=== PATIENT | female | born 1975 | race Caucasian/White ===

== ENCOUNTER 2019-04-30 09:20 | Emergency (ER) | payer MEDICARE, MEDICAID, SELFPAY ==
[2019-04-30 09:24] VITALS: BP 162/124; PULSE 61; RESP 16; TEMP 36.3; O2SAT 96; BMI 43.4
--- NOTE | 2019-04-30 09:29 | ED_ITS ---
Entered by Lashawn Foley, acting as scribe for Cedric Daily DO HPI - Wound/Laceration General: Chief Complaint: Wound/Laceration Stated Complaint: RIGHT FOOT PAIN Time Seen by Provider: 04/30/19 09:29 History of Present Illness: HPI narrative: 44 yo female presents with right foot laceration. [facility] ED PFSH: Social History Smoking and tobacco status: former smoker Female Reproductive History: Date of last menstrual period: 04/30/19 Course Vital Signs: Vital signs: Vital Signs Temperature 97.3 F L 04/30/19 09:24 Pulse Rate 61 04/30/19 09:24 Respiratory Rate 16 04/30/19 09:24 Blood Pressure 162/124 04/30/19 09:24 Pulse Oximetry 96 04/30/19 09:24 Coding Level of Care Code ED Revenue Cycle Manager for Jerrica Clifford
--- NOTE | 2019-04-30 09:37 | W.ED.WOUNDLC ---
HPI - Wound/Laceration General: Chief Complaint: Wound/Laceration Stated Complaint: RIGHT FOOT PAIN Time Seen by Provider: 04/30/19 09:29 Source: patient Mode of arrival: ambulatory Limitations: no limitations History of Present Illness: HPI narrative: Patient is a very nice 44-year-old female who presents to ED today at the request of her employer for evaluation following wound dehiscence to a laceration that was repaired approximately 2 weeks ago. Patient states that she had stitches placed to the plantar aspect of her left fourth and fifth toes about 2 weeks ago and stitches were removed a week ago. She reports the fifth digit healed nicely but the fourth digit has opened. She has not noticed any redness or drainage to the area. Patient reports she has a few days left worth of antibiotics. 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 Onset (ago): day(s) Extremity Location: Left: foot Place: home Patient tetanus UTD: Yes Associated symptoms: Reports no associated symptoms Review of Systems Skin/Breast: Reports: other (Wound dehiscence left fourth toe); Denies: redness or skin swelling [facility] ED PFSH: Social History Smoking and tobacco status: former smoker Female Reproductive History: Date of last menstrual period: 04/30/19 Physical Exam Const: COMMON NORMALS: no apparent distress, oriented x3, no limitations, alert and well nourished Extremity: OTHER: Patient has a very small 0.75 cm laceration to the plantar aspect at the base of her left fourth digit that has dehisced. There is no redness, swelling, drainage, or odor from the wound. Neuro: COMMON NORMALS: oriented x3 SENSORIUM/ORIENTATION: Yes alert Course Vital Signs: Vital signs: Vital Signs Temperature 97.3 F L 04/30/19 09:24 Pulse Rate 61 04/30/19 09:24 Respiratory Rate 16 04/30/19 09:24 Blood Pressure 162/124 04/30/19 09:24 Pulse Oximetry 96 04/30/19 09:24 MDM - Wound/Laceration MDM Narrative: Medical decision making narrative: Wound at this point is infection free and will have to heal by secondary intent. Wound care discussed at home. Patient is cleared to return to work. Discharge Plan Discharge Patient Disposition: Home, Self-Care Clinical Impression: Dehiscence of wound Condition: Stable Discharge Orders: Discharge Order (Routine); Ordered 04/30/19 Ordered By: Ann Zuniga Activity Restrictions/Additional Instructions: As discussed the open wound will have to heal by secondary intent/on its own. Finish antibiotic course as directed. Keep wound clean with warm soap and water and covered. You may to return to work with no restrictions. Stand Alone Forms: Work/School Release Coding Level of Care Code ED Solar Hot Water Installer for Jerrica Clifford
== END 2019-04-30 10:21 | disposition home or self-care (01) ==
LOC: ER 10:18
PROVIDERS: Emergency Provider Physician Assistant
DX: T81.30XA Disruption of wound, unspecified, initial encounter (principal); Z87.891 Personal history of nicotine dependence; Y83.8 Other surgical procedures as the cause of abnormal reaction of the patient, or of later complication, without mention of misadventure at the time of the procedure
CPT/HCPCS: 99281

== ENCOUNTER → 2019-11-30 14:02 | Outpatient (BNVA) | payer MEDICARE, MEDICAID, SELFPAY | PROVIDERS: Visit Provider Nurse Practitioner Family | DX: R82.90 Unspecified abnormal findings in urine (principal); R30.0 Dysuria; I10 Essential (primary) hypertension | CPT/HCPCS: 80053; 80061; 81000; 84439; 84443; 87077; 87086; 87186 ==

== ENCOUNTER → 2019-12-22 14:06 | Outpatient (BNVA) | payer MEDICARE, MEDICAID, SELFPAY | PROVIDERS: Visit Provider Nurse Practitioner Family | DX: R32 Unspecified urinary incontinence (principal); R82.90 Unspecified abnormal findings in urine | CPT/HCPCS: 80053; 81000; 87077; 87086; 87186 ==

== ENCOUNTER 2020-01-10 16:01 | Emergency (ER) | payer MEDICARE, MEDICAID, SELFPAY ==
[2020-01-10 16:04] VITALS: BP 152/94; PULSE 97; RESP 18; TEMP 36.4; O2SAT 97; BMI 48.5
--- NOTE | 2020-01-10 16:11 | ED_ITS ---
HPI - Dental/Oral General: Chief complaint: Dental/Oral Stated complaint: tooth ache Time Seen by Provider: 01/10/20 16:10 History of Present Illness: HPI Narrative: Patient is a 44-year-old female comes to the ED with toothache. Patient has appointment to see dentist on Saturday. Patient says she was chewing some food she bit down and felt her teeth crack and she felt intense pain. MD Complaint: tooth pain Location: Tooth # (13 and 14) Associated symptoms: Denies fever(s) or odynophagia Review of Systems Const: Denies: fever(s), chills or fatigue Eyes: Denies: change in vision or eye discomfort ENMT: Reports: dental pain; Denies: throat pain, odynophagia, nasal discharge or nasal congestion Card: Denies: chest pain, palpitations, edema, swelling of feet/ankles, dyspnea on exertion or orthopnea Resp: Denies: dyspnea, productive cough or non-productive cough GI: Denies: abdominal pain, nausea, vomiting, diarrhea, constipation or hem atochezia : Denies: flank pain, dysuria or hematuria Musc: Denies: neck pain, back pain or extremity swelling Skin/Breast: Denies: rash or new lesions Neuro: Denies: headache(s), numbness in extremities or weakness in extremities PFSH ED PFSH: Medical History Depression Hypertension Social History Smoking and tobacco status: former smoker Alcohol intake: never Female Reproductive History: Date of last menstrual period: 04/30/19 Physical Exam Const: COMMON NORMALS: patient oriented x3 and alert GENERAL APPEARANCE: cooperative; not comfortable (Patient is in tears due to dental pain.) NUTRITIONAL APPEARANCE: obese morbidly obese HENMT: COMMON NORMALS: normocephalic HEAD & SCALP: normocephalic MOUTH: Normal oral and palatal mucosa present TEETH & GINGIVA: Yes abnormal tooth and associated gingiva upper left second molar tender and enamel fractured and Yes caries (Multiple dental caries.) THROAT: posterior oropharynx normal and uvula midline Neck/C-Spine: COMMON NORMALS: supple GENERAL: Yes normal visual inspection Resp: COMMON NORMALS: normal respiratory effort, No retractions, No use of accessory muscles and clear to auscultation bilaterally AUSCULTATION: clear to auscultation bilaterally Cardio: COMMON NORMALS: regular rate, regular rhythm, S1 normal heart sound present, S2 normal heart sound present, No gallops present (Cardio), No clicks present (Cardio), No murmurs present (Cardio) and Peripheral pulses 2+ throughout RATE: regular rate RHYTHM: regular rhythm HEART SOUNDS: S1 normal heart sound present and S2 normal heart sound present PERIPHERAL PULSES: Peripheral pulses 2+ throughout GI: COMMON NORMALS: Normal to inspection, nondistended, normoactive bowel sounds present, Soft to palpation, non-tender and no masses PALPATION: Yes Soft to palpation : COMMON NORMALS: Yes no CVA tenderness BLADDER/KIDNEY EXAM: Yes no CVA tenderness Back/Pelvis: COMMON NORMALS: no CVA tenderness Extremity: COMMON NORMALS: normal to inspection Neuro: COMMON NORMALS: patient oriented x3 and moves all extremities SENSORIUM/ORIENTATION: Yes alert Skin: GENERAL SKIN EXAM: dry skin Course Vital Signs: Vital signs: Vital Signs Temperature 97.5 F L 01/10/20 16:34 Pulse Rate 97 01/10/20 16:34 Respiratory Rate 18 01/10/20 16:34 Blood Pressure 152/94 01/10/20 16:34 Pulse Oximetry 97 01/10/20 16:34 MDM - Dental/Oral MDM Narrative: Medical decision making narrative: Patient is a 44-year-old female comes to the ED with a toothache. Patient has a scheduled appointment with dentist on Saturday to manage tooth ache. Patient appears in acute pain and is emotional during history and physical exam. She has poor dentition and left upper second molar dental fracture. Patient was given prescription for hydrocodone 5/325 mg quantity 8 tabs. Discharge Plan Discharge Patient Disposition: Home Clinical Impression: Toothache Condition: Stable Prescriptions: No Action phenazopyridine [Pyridium] 200 mg tablet 200 mg PO TID PRN (Reason: pain) Qty: 6 RF: 0 ciprofloxacin HCl [Cipro] 500 mg tablet 500 mg PO BID 7 Days Qty: 14 RF: 0 hydrochlorothiazide 12.5 mg tablet 12.5 mg PO QAM Qty: 30 RF: 2 lisinopril 40 mg tablet 40 mg PO DAILY Qty: 30 RF: 2 venlafaxine [Effexor XR] 75 mg capsule,extended release 24hr 75 mg PO QAM Qty: 30 RF: 2 Discharge Orders: Discharge Order (Routine); Ordered 01/10/20 Ordered By: Chano Yañez Referrals: Yazmin Rea NP [Primary Care Provider] - Discharge Diet: Regular Discharge Activity: Increase activity as tolerated Activity Restrictions/Additional Instructions: Follow-up with dentist at your scheduled appointment on Saturday. Take medications as prescribed. Return to the ER or your medical provider if condition worsens. Please read and understand discharge instructions. If any questions, please ask. Discharge Date/Time: 01/10/20 16:35 Coding Level of Care Code ED Diving Board Assembler for Chg Fwd Exam Comprehensive
[2020-01-10] MEDS: HYDROcodone-acetaminophen 7.5-325 mg Tablet 2 TAB PO (16:28)
[2020-01-10 16:31] VITALS: BP 152/94; PULSE 97; RESP 18; TEMP 36.4; O2SAT 97
[2020-01-10 16:34] VITALS: BP 152/94; PULSE 97; RESP 18; TEMP 36.4; O2SAT 97
== END 2020-01-10 16:35 | disposition home or self-care (01) ==
PROVIDERS: Emergency Provider Physician Assistant; PCP Nurse Practitioner Family
DX: K08.89 Other specified disorders of teeth and supporting structures (principal); I10 Essential (primary) hypertension; Z87.891 Personal history of nicotine dependence
CPT/HCPCS: 12345; 99281; 99282

== ENCOUNTER 2020-01-13 08:17 | Outpatient (CLI) | payer MEDICARE, MEDICAID, SELFPAY ==
--- NOTE | 2020-01-13 08:30 | XR_ITS ---
WS: [id number] Exam: XR KUB [id number] Date/Time of Exam: 01/13/2020 8:25 AM Reason For Exam: Stones Findings: No sign of bowel obstruction or free air. Visualized organ margins are intact. No significant abnorma l calcification identified. Moderate amount of stool noted in the large bowel. Bony structures are in tact as visualized. XR/XR KUB [id number] IMPRESSION: 1. No obvious calcifications noted in the region of the renal silhouettes. No a cute finding.
== END 2020-01-13 08:18 | disposition home or self-care (01) ==
LOC: RAD 08:21
PROVIDERS: PCP Nurse Practitioner Family; Visit Provider Nurse Practitioner Family
DX: R10.9 Unspecified abdominal pain (principal); N20.0 Calculus of kidney
CPT/HCPCS: 74018; 81003

== ENCOUNTER 2020-09-09 14:14 | Emergency (ER) | payer MEDICARE, MEDICAID, SELFPAY ==
[2020-09-09] VITALS (8 sets, daily range): BP systolic 118–143; BP diastolic 70–107; PULSE 66–82; RESP 16–20; TEMP 37; O2SAT 94–100; BMI 50.8
--- NOTE | 2020-09-09 17:15 | W.ED.BACK ---
HPI - Back Pain/Injury General: Chief Complaint: Back Pain/Injury Stated Complaint: abdomen pain Source: patient Mode of arrival: ambulatory Limitations: no limitations History of Present Illness: HPI Narrative: Left flank pain that started around 1 PM today. Pain is severe and nonradiating. With associated nausea. She has a history of kidney stones. She denies any fever or hematuria. She denies dysuria. She is here to be evaluated for this MD elicited complaint: back pain Pertinent past history: kidney stones Onset (ago): hour(s) (2) Timing: constant Severity: severe Similar Symptoms Previously: No Quality: stabbing Location: left flank Radiation: none Exacerbating factors: none Relieving factors: none Associated symptoms: Reports abdominal pain and nausea; Deny arthralgias, chills, change in bowel habits, difficulty walking, dysuria, fatigue, fecal incontinence, fever(s), hematuria, myalgias, numbness, syncope, tingling/numbness/burning, urinary frequency, urinary urgency, vomiting or weakness Review of Systems General: Reports: 10 or more systems reviewed and unremarkable except in HPI and below Const: Denies: fever(s), chills or fatigue Card: Denies: syncope GI: Reports: abdominal pain and nausea; Denies: vomiting, fecal incontinence or change in bowel habits : Denies: dysuria, urinary urgency or hematuria Neuro: Denies: difficulty walking PFS ED PFSH: Medical History Depression History of kidney stones Hypertension Surgical History S/P extracorporeal shock wave therapy Family History Father Diabetes Multiple sclerosis Mother Hypertension Social History Smoking and tobacco status: never smoked Alcohol intake: never Marital status: Current occupational status: disabled History of recent travel: No Female Reproductive History: Date of last menstrual period: 08/09/20 Physical Exam Const: COMMON NORMALS: no acute distress, average body habitus, patient oriented x3, no limitations, healthy appearing, alert and well nourished HENMT: COMMON NORMALS: normocephalic, atraumatic and moist oral mucous membranes HEAD & SCALP: normocephalic and atraumatic Neck/C-Spine: COMMON NORMALS: no meningeal signs and no JVD Resp: COMMON NORMALS: normal respiratory effort, No retractions, No use of accessory muscles, clear to auscultation bilaterally and percussion normal AUSCULTATION: clear to auscultation bilaterally PERCUSSION: percussion normal Cardio: COMMON NORMALS: no JVD, regular rate, regular rhythm, S1 normal heart sound present, S2 normal heart sound present, No gallops present (Cardio), No clicks present (Cardio), No murmurs present (Cardio), No rub (Cardio) and Peripheral pulses 2+ throughout RATE: regular rate RHYTHM: regular rhythm HEART SOUNDS: S1 normal heart sound present and S2 normal heart sound present PERIPHERAL PULSES: Peripheral pulses 2+ throughout GI: COMMON NORMALS: Normal to inspection, nondistended, normoactive bowel sounds present, Soft to palpation, non-tender, No hepatosplenomegaly present, no masses and no bruits PALPATION: Yes Soft to palpation and Yes No hepatosplenomegaly present : BLADDER/KIDNEY EXAM: Yes CVA tenderness Back/Pelvis: GENERAL BACK: Yes CVA tenderness CVA tenderness: left Extremity: COMMON NORMALS: normal to inspection, full ROM, capillary refill normal, no calf tenderness and no pedal edema Neuro: COMMON NORMALS: patient oriented x3 SENSORIUM/ORIENTATION: Yes alert MENINGEAL SIGNS: Yes no meningeal signs Course Reevaluation(s): Reevaluation #1: Pain resolved. She thinks she is ready to go home. I have discussed her lab and imaging findings with her earlier. Labs unremarkable CT scan negative. I cannot identify any cause for her pain we will therefore discharge her home with no new orders she is advised to return for any concerns. She voiced understanding and is in agreement with the plan. Time: 22:04 Vital Signs: Vital signs: Vital Signs Temperature 98.6 F 09/09/20 14:59 Pulse Rate 82 09/09/20 22:34 Respiratory Rate 18 09/09/20 22:34 Blood Pressure 132/78 09/09/20 22:34 Pulse Oximetry 99 09/09/20 22:34 MDM - Back Pain/Injury MDM Narrative: Medical decision making narrative: 45-year-old female patient who presents to the emergency department with left flank pain. She has a history of kidney stone and lithotripsy and she thought this was what was causing her pain. Evaluation in the emergency department showed negative urinalyses, negative CT kidney stones, other labs unremarkable. She is therefore discharged home with no new orders. Pain was difficult to control and she required multiple doses of NSAIDs and narcotic medication before her pain was eventually controlled. Medical Records: Attestation: I reviewed the patient's medical records. Lab Data: Attestation: I reviewed the patient's lab results. Labs: Lab Results 09/09/20 09/09/20 09/09/20 Range/Units 17:05 17:50 17:50 WBC 9.1 (4.0-10.0) 10^3/ uL RBC 4.20 (4.1-5.3) 10^6/u L Hgb 13.3 (11.5-15.3) g/dL Hct 39.8 (37.0-47.0) % MCV 94.8 (81-99) fL MCH 31.7 (28.0-34.0) pg MCHC 33.4 (30.0-36.0) g/dL RDW 13.8 (12.1-15.1) % Plt Count 248 (130-400) 10^3/c mm MPV 11.3 H (7.4-10.4) fL Neut % (Auto) 62.9 % Lymph % (Auto) 29.6 % Walsh % (Auto) 6.0 % Eos % (Auto) 0.9 % Baso % (Auto) 0.3 % Neut # (Auto) 5.72 (1.8-7.7) 10^3/u L Lymph # (Auto) 2.7 (0.8-4.8) 10^3/u L Walsh # (Auto) 0.6 (0.2-0.9) 10^3/u L Eos # (Auto) 0.1 (0.0-0.8) 10^3/u L Baso # (Auto) 0.0 (0.0-0.1) 10^3/u L Nucleated RBC % (a uto) 0 % Nucleated RBCs # 0.0 /100WBC Sodium 144 (136-145) mmol/L Potassium 4.0 (3.5-5.1) mmol/L Chloride 109 H (98-107) mmol/L Carbon Dioxide 25 (22-29) mmol/L Anion Gap 14.0 (5-19) BUN 13 (6-20) mg/dL Creatinine 0.7 (0.5-0.9) mg/dL GFR Calculation 91.3 (90-130) mL/min Glucose 90 (65-115) mg/dL Calculated Osmolal ity 298 H (285-295) mOsm/k g Calcium 8.8 (8.5-10.5) mg/dL Total Bilirubin 0.4 (0.15-1.2) mg/dL AST 34 H (0-32) U/L ALT 45 H (0-33) U/L Alkaline Phosphata se 76 (35-105) IU/L C-Reactive Protein 3.5 (0.0-4.9) mg/L Total Protein 6.3 L (6.6-8.7) g/dL Albumin 3.9 (3.5-5.2) g/dL Globulin 2.4 (1.3-4.6) g/dL Urine Color Yellow (Yellow) Urine Appearance Hazy A (CLEAR) Urine pH 8 H (5-7) Ur Specific Gravit y 1.010 (1.005-1.030) Urine Protein Neg (Negative) Urine Glucose (UA) Norm (Normal) Urine Ketones 1+ H (Negative) Urine Blood Neg (Negative) Urine Nitrate Negative (Negative) Urine Bilirubin Neg (Negative) Prot Sulfosalicyli c Acd Positive (Negative) Urine Urobilinogen Norm (Negative) mg/dL Ur Leukocyte Ana Luisa ase Negative (Negative) Urine RBC None (0-2) /hpf Urine WBC None (0-5) /hpf Ur Squamous Epith Cells 15-25 H (0-5) /hpf Amorphous Sediment 1+ /hpf Urine Bacteria 1+ H (NONE) /hpf Urine Mucus 1+ /hpf Imaging Data^: CT Abd/Pel: Attestation: I personally reviewed and interpreted this imaging study as follows: Radiologist's impression: [address] [id number] Scan ReportSigned Patient: Landon Hanna #: [id number]: [id number]#:[id number]/Sex: 45 / FADM Date: 09/09/20Loc: ERRoom/Bed:Attending Dr: Ordering Provider/Ordering MD: Jamal Cao MD, ANDREW Date of Service: 09/09/20 Procedure(s): CT kidney stone 44897 Accession Number(s): [id number] Report Number: [id number] PROCEDURE INFORMATION: Exam: CT Abdomen And Pelvis Without Contrast Exam date and time: 09/09/2020 7:00 PM Age: 45 years old Clinical indication: Abdominal pain; Left; Prior surgery; Surgery date: 6+ months; Surgery type: C-sect; Patient HX: C/O sudden onset L flank pain w HX of stones; Additional info: Left flank pain TECHNIQUE: Imaging protocol: Computed tomography of the abdomen and pelvis without contrast. Radiation optimization: All CT scans at this facility use at least one of these dose optimization techniques: automated exposure control; mA and/or kV adjustment per patient size (includes targeted exams where dose is matched to clinical indication); or iterative reconstruction. COMPARISON: CR XR KUB [id number] 01/13/2020 8:28 AM RADIATION DOSE METRICS: Total DLP (mGy-cm): 2007.93 FINDINGS: Liver: Normal. No mass. Gallbladder and bile ducts: Normal. No calcified stones. No ductal dilation. Pancreas: Normal. No ductal dilation. Spleen: Normal. No splenomegaly. Adrenal glands: Normal. No mass. Kidneys and ureters: Normal. No hydronephrosis. Stomach and bowel: Unremarkable. No obstruction. No mucosal thickening. Appendix: No evidence of appendicitis. Intraperitoneal space: Unremarkable. No free air. No significant fluid collection. Vasculature: Unremarkable. No abdominal aortic aneurysm. Lymph nodes: Unremarkable. No enlarged lymph nodes. Urinary bladder: Unremarkable as visualized. Reproductive: Unremarkable as visualized. Bones/joints: Unremarkable. No acute fracture. Soft tissues: Unremarkable. CT/CT kidney stone [id number] IMPRESSION: No acute findings. Radiation Dose CTDIVOL = (mGy): DLP = 2007.93 (mGy-cm) Dictated By:Frame,KevinSigned By:Frame,KevinSigned Date/Time:09/09/20 1952DD/ 49 Discharge Plan Discharge Patient Disposition: Home Clinical Impression: Acute left flank pain Condition: Stable Prescriptions: Continued hydrocodone-acetaminophen 7.5-325 mg tablet 1 tab PO BID PRNRF: 0 Anbesol (benzocaine) 10 % gel 1 applic MUCOUS MEM BID PRNRF: 0 nitrofurantoin monohyd/m-cryst [Macrobid] 100 mg capsule 100 mg PO BID Qty: 28 RF: 0 lisinopril 40 mg tablet 40 mg PO DAILY Qty: 30 RF: 2 venlafaxine 75 mg capsule,extended release 24hr See Rx Instructions .ROUTE .COMPLEX Qty: 30 RF: 0 hydrochlorothiazide 12.5 mg tablet See Rx Instructions .ROUTE .COMPLEX Qty: 30 RF: 0 Discharge Orders: Discharge ED (Routine); Ordered 09/09/20 Ordered By: Jamal Cao Referrals: Yazmin Rea NP [Primary Care Provider] - 1-3 days Discharge Diet: Usual diet Patient Instructions: Abdominal Pain (ED) Activity Restrictions/Additional Instructions: Return for any new or worsening symptoms. Follow-up with your primary care provider within 3 days. Take Tylenol or ibuprofen as needed for pain. Continue home medications. Coding Level of Care Code ED Supervisor Film Processing for Jerrica Fwd Exam Comprehensive
[2020-09-09] MEDS: ketorolac 30 mg/mL INJ IVP (17:54)
[2020-09-09] MEDS: ondansetron 2 mg/ML SDV 2 mL 4 MG IVP (17:54)
[2020-09-09 18:15] LABS: Basophils % 0.3 %; Eosinophils # 0.1 10^3/uL (0.0-0.8); Eosinophils % 0.9 %; Hematocrit 39.8 % (37.0-47.0); Hemoglobin 13.3 g/dL (11.5-15.3); Lymphocytes # 2.7 10^3/uL (0.8-4.8); Lymphocytes % 29.6 %; Mean Corpuscular HGB Conc 33.4 g/dL (30.0-36.0); Mean Corpuscular Hemoglobin 31.7 pg (28.0-34.0); Mean Corpuscular Volume 94.8 fL (81-99); Mean Platelet Volume 11.3 fL (7.4-10.4); Monocytes # 0.6 10^3/uL (0.2-0.9); Neutrophils # 5.72 10^3/uL (1.8-7.7); Neutrophils % 62.9 %; Nucleated Red Blood Cells % 0 %; Platelet Count 248 10^3/cmm (130-400); Red Cell Distribution Width 13.8 % (12.1-15.1); White Blood Count 9.1 10^3/uL (4.0-10.0)
[2020-09-09 18:29] LABS: Alanine Aminotransferase 45 U/L (0-33); Albumin Level 3.9 g/dL (3.5-5.2); Alkaline Phosphatase 76 IU/L (35-105); Aspartate Amino Transferase 34 U/L (0-32); Blood Urea Nitrogen 13 mg/dL (6-20); C Reactive Protein 3.5 mg/L (0.0-4.9); Calcium 8.8 mg/dL (8.5-10.5); Carbon Dioxide 25 mmol/L (22-29); Chloride 109 mmol/L (98-107); Globulin 2.4 g/dL (1.3-4.6); Glomerular Filtration Rate 91.3 mL/min (90-130); Glucose 90 mg/dL (65-115); Osmolality Calculated 298 mOsm/kg (285-295); Sodium 144 mmol/L (136-145); Total Bilirubin 0.4 mg/dL (0.15-1.2); Total Protein 6.3 g/dL (6.6-8.7)
[2020-09-09] MEDS: morphine 4 mg/mL SDV 1 mL IVP ×2 (18:35→20:29)
[2020-09-09 18:36] LABS: Add Urine Microscopic? YES; Bilirubin Urine Neg (Negative); Blood Urine Neg (Negative); Glucose Urine UA Norm (Normal); Ketones Urine 1+ (Negative); Leukocyte Esterase Urine Negative (Negative); Nitrate Urine Negative (Negative); Protein Urine Neg (Negative); Sulfosalicylic Acid Urine Positive (Negative); Urine Appearance Hazy (CLEAR); Urine Color Yellow (Yellow); Urobilinogen Urine Norm (Negative); pH Urine 8 (5-7)
[2020-09-09 18:37] LABS: Add Urine Culture? No; Amorphous Sediment Urine 1+ /hpf; Bacteria Urine 1+ /hpf; Mucus Urine 1+ /hpf; Squamous Epithelial Cell Urine 15-25 /hpf (0-5)
--- NOTE | 2020-09-09 19:00 | CTR_ITS ---
PROCEDURE INFORMATION: Exam: CT Abdomen And Pelvis Without Contrast Exam date and time: 09/09/2020 7:00 PM Age: 45 years old Clinical indication: Abdominal pain; Left; Prior surgery; Surgery date: 6+ months; Surgery type: C-sect; Patient HX: C/O sudden onset L flank pain w HX of stones; Additional info: Left flank pain TECHNIQUE: Imaging protocol: Computed tomography of the abdomen and pelvis without contrast. Radiation optimization: All CT scans at this facility use at least one of these dose optimization techniques: automated exposure control; mA and/or kV adjustment per patient size (includes targeted exams where dose is matched to clinical indication); or iterative reconstruction. COMPARISON: CR XR KUB [id number] 01/13/2020 8:28 AM RADIATION DOSE METRICS: Total DLP (mGy-cm): FINDINGS: Liver: Normal. No mass. Gallbladder and bile ducts: Normal. No calcified stones. No ductal dilation. Pancreas: Normal. No ductal dilation. Spleen: Normal. No splenomegaly. Adrenal glands: Normal. No mass. Kidneys and ureters: Normal. No hydronephrosis. Stomach and bowel: Unremarkable. No obstruction. No mucosal thickening. Appendix: No evidence of appendicitis. Intraperitoneal space: Unremarkable. No free air. No significant fluid collection. Vasculature: Unremarkable. No abdominal aortic aneurysm. Lymph nodes: Unremarkable. No enlarged lymph nodes. Urinary bladder: Unremarkable as visualized. Reproductive: Unremarkable as visualized. Bones/joints: Unremarkable. No acute fracture. Soft tissues: Unremarkable. CT/CT kidney stone [id number] IMPRESSION: No acute findings. Radiation Dose CTDIVOL = (mGy): DLP = (mGy-cm)
--- NOTE | 2020-09-09 19:01 | PC.NURSE ---
hand off report to XU Madden
[2020-09-09] MEDS: orphenadrine 30 mg/mL Inj 2 mL 60 MG IVP (20:29)
[2020-09-09] MEDS: HYDROmorphone 1 mg/mL INJ 1 mL IVP (21:10)
== END 2020-09-09 22:35 | disposition home or self-care (01) ==
PROVIDERS: Nurse Practitioner Family; Emergency Provider Family Medicine; PCP Nurse Practitioner Family
DX: R10.9 Unspecified abdominal pain (principal); I10 Essential (primary) hypertension
CPT/HCPCS: 74176; 80053; 81001; 85025; 86140; 96374; 96375; 96376; 99284; J1170; J1885; J2270; J2360; J2405

== ENCOUNTER 2021-01-24 10:06 | Outpatient (CLI) | payer MEDICARE, MEDICAID, SELFPAY ==
--- NOTE | 2021-01-24 10:17 | XR_ITS ---
WS: [id number] LEFT SHOULDER: 2 VIEW(S) TECHNIQUE: Internal and external rotation. HISTORY: CHRONIC L SHOULDER PAIN COMPARISON: None available. No fracture or dislocation or soft tissue abnormality. Glenohumeral and AC joints are unremarkable. XR/XR shoulder LT min 2V* [id number] IMPRESSION: Normal LEFT shoulder.
== END 2021-01-24 10:07 | disposition home or self-care (01) ==
PROVIDERS: PCP Nurse Practitioner Family; Visit Provider Family Medicine
DX: M25.512 Pain in left shoulder (principal); G89.29 Other chronic pain
CPT/HCPCS: 73030

== ENCOUNTER 2021-06-24 14:47 | Emergency (ER) | payer MEDICARE, MEDICAID, SELFPAY ==
[2021-06-24 15:05] VITALS: BP 153/86; PULSE 69; RESP 18; TEMP 36.8; O2SAT 98; BMI 44.9
--- NOTE | 2021-06-24 15:13 | ED_ITS ---
HPI - Back Pain/Injury General: Chief Complaint: Back Pain/Injury Stated Complaint: blood in urine Time Seen by Provider: 06/24/21 14:49 Source: patient Mode of arrival: ambulatory Limitations: no limitations History of Present Illness: Referral to female presents emergency room complaining of low back pain worse on the right side. She reports she was seen couple weeks ago by PCP had hematuria told she had kidney stone however no imaging was done. She is having difficulty with urination feels like she cannot completely empty her bladder denies any fever sweats or chills states pain in her low back is worsening she refers to the right SI joint. She has not noticed any further hematuria. MD elicited complaint: back pain Pertinent past history: kidney stones Timing: intermittent Severity: moderate Similar Symptoms Previously: Yes Quality: sharp Radiation: none Exacerbating factors: movement and other (palpation) Relieving factors: none Associated symptoms: Reports hematuria; Deny abdominal pain, arthralgias, chills, change in bowel habits, difficulty walking, dysuria, fatigue, fecal incontinence, fever(s), myalgias, nausea, numbness, syncope, tingling/numbness/burning, urinary frequency, urinary urgency, vomiting or weakness Review of Systems Const: Denies: fever(s), chills, body aches or fatigue ENMT: Denies: throat pain, ear or mastoid pain, nasal discharge or nasal congestion Card: Denies: syncope Resp: Denies: dyspnea, productive cough or non-productive cough GI: Denies: abdominal pain, nausea, vomiting, fecal incontinence or change in bowel habits : Reports: hematuria; Denies: dysuria or urinary urgency Musc: Reports: back pain (Her first SI joint right side) Skin/Breast: Denies: rash or pruritus Neuro: Denies: difficulty walking PFS ED PFSH: Medical History Depression History of kidney stones Hypertension Surgical History S/P extracorporeal shock wave therapy Family History Father Diabetes Multiple sclerosis Mother Hypertension Social History Smoking and tobacco status: never smoked Alcohol intake: never Marital status: Current occupational status: disabled History of recent travel: No Female Reproductive History: Date of last menstrual period: 08/09/20 Physical Exam Const: GENERAL APPEARANCE: cooperative and comfortable ORIENTATION/CONSCIOUSNESS: Yes awake, Yes oriented to person, Yes oriented to p lace and Yes oriented to time HENMT: COMMON NORMALS: normocephalic, atraumatic and hearing grossly normal bilaterally HEAD & SCALP: normocephalic and atraumatic Neck/C-Spine: COMMON NORMALS: no JVD Resp: COMMON NORMALS: normal respiratory effort, No retractions, No use of accessory muscles and clear to auscultation bilaterally AUSCULTATION: clear to auscultation bilaterally Cardio: COMMON NORMALS: no JVD, regular rate, regular rhythm and No murmurs present (Cardio) RATE: regular rate RHYTHM: regular rhythm GI: COMMON NORMALS: Soft to palpation and No hepatosplenomegaly present AUSCULTATION: Yes normoactive bowel sounds PALPATION: Yes Soft to palpation, No Tenderness to palpation present (GI), No Guarding due to palpation present (GI) and Yes No hepatosplenomegaly present : COMMON NORMALS: Yes no CVA tenderness BLADDER/KIDNEY EXAM: Yes no CVA tenderness Back/Pelvis: COMMON NORMALS: no CVA tenderness SACROILIAC JOINTS: Yes SI joint(s) abnormal (Right) SI joint details: tender to palpation Extremity: COMMON NORMALS: normal to inspection, capillary refill normal, no clubbing, cyanosis or edema, no calf tenderness and no pedal edema Neuro: SENSORIUM/ORIENTATION: Yes oriented to person, Yes oriented to place and Yes oriented to time Skin: COMMON NORMALS: no rashes or lesions noted GENERAL SKIN EXAM: no rashes or lesions noted Course Vital Signs: Vital signs: Vital Signs Temperature 98.3 F 06/24/21 15:05 Pulse Rate 77 06/24/21 18:24 Respiratory Rate 18 06/24/21 18:24 Blood Pressure 154/82 06/24/21 18:24 Pulse Oximetry 96 06/24/21 18:24 MDM - Back Pain/Injury Medical Decision Making Labs and imaging reviewed there is no hematuria. White count is normal and CT there is no evidence of nephrolithiasis no dilation of the ureters suggestive of recent passage of stone. Discussed results with the patient we will discharge her home treat for musculoskeletal SI pain and follow-up with her primary care doctor if not improving Medical Records I reviewed the patient's medical records. Labs I reviewed the patient's lab results. : 06/24/21 15:48 06/24/21 15:48 Radiology Impressions Abdomen/Pelvis CT 06/24/21 16:59 IMPRESSION: 1. No obstructing calculi, suspicious renal mass or other acute urinary tract findings. Follow-up cystoscopy may be helpful if hematuria persists. 2. Left ovarian/adnexal cystic structure measuring 2.9 cm. This is likely benign. However follow-up ultrasound/duplex imaging correlation may be considered if clinically indicated. 3. Left lateral abdominal wall lipoma, unchanged. 4. Early colonic diverticular formation without diverticulitis. Laboratory Results WBC 8.1 10^3/uL (4.0-10.0) 06/24/21 15:48 RBC 4.48 10^6/uL (4.1-5.3) 06/24/21 15:48 Hgb 14.1 g/dL (11.5-15.3) 06/24/21 15:48 Hct 42.2 % (37.0-47.0) 06/24/21 15:48 MCV 94.2 fl (81-99) 06/24/21 15:48 MCH 31.5 pg (28.0-34.0) 06/24/21 15:48 MCHC 33.4 g/dL (30.0-36.0) 06/24/21 15:48 RDW 13.2 % (12.1-15.1) 06/24/21 15:48 Plt Count 215 10^3/cmm (130-400) 06/24/21 15:48 MPV 11.5 fL (7.4-10.4) H 06/24/21 15:48 Neut % (Auto) 55.0 % 06/24/21 15:48 Lymph % (Auto) 34.5 % 06/24/21 15:48 [place] % (Auto) 7.9 % 06/24/21 15:48 Eos % (Auto) 2.0 % 06/24/21 15:48 Baso % (Auto) 0.4 % 06/24/21 15:48 Neut # (Auto) 4.48 10^3/uL (1.8-7.7) 06/24/21 15:48 Lymph # (Auto) 2.8 10^3/uL (0.8-4.8) 06/24/21 15:48 [place] # (Auto) 0.6 10^3/uL (0.2-0.9) 06/24/21 15:48 Eos # (Auto) 0.2 10^3/uL (0.0-0.8) 06/24/21 15:48 Baso # (Auto) 0.0 10^3/uL (0.0-0.1) 06/24/21 15:48 Nucleated RBC % (auto) 0 % 06/24/21 15:48 Nucleated RBCs # 0.0 /100WBC 06/24/21 15:48 Sodium 134 mmol/L (136-145) L 06/24/21 15:48 Potassium 4.4 mmol/L (3.5-5.1) 06/24/21 15:48 Chloride 105 mmol/L (98-107) 06/24/21 15:48 Carbon Dioxide 20 mmol/L (22-29) L 06/24/21 15:48 Anion Gap 13.4 (5-19) 06/24/21 15:48 BUN 12 mg/dL (6-20) 06/24/21 15:48 Creatinine 0.8 mg/dL (0.5-0.9) 06/24/21 15:48 GFR Calculation 77.9 mL/min (90-130) L 06/24/21 15:48 Glucose 89 mg/dL (65-115) 06/24/21 15:48 Calculated Osmolality 277 mOsm/kg (285-295) L 06/24/21 15:48 Calcium 9.0 mg/dL (8.5-10.5) 06/24/21 15:48 Urine Color Yellow (Yellow) 06/24/21 15:40 Urine Appearance Sl hazy (CLEAR) 06/24/21 15:40 Urine pH 6.5 (5-7) 06/24/21 15:40 Ur Specific [place] 1.015 (1.005-1.030) 06/24/21 15:40 Urine Protein Neg (Negative) 06/24/21 15:40 Urine Glucose (UA) Norm (Normal) 06/24/21 15:40 Urine Ketones Negative (Negative) 06/24/21 15:40 Urine Blood Neg (Negative) 06/24/21 15:40 Urine Nitrate Negative (Negative) 06/24/21 15:40 Urine Bilirubin Neg (Negative) 06/24/21 15:40 Urine Urobilinogen Norm mg/dL (Negative) 06/24/21 15:40 Ur Leukocyte Esterase Negative (Negative) 06/24/21 15:40 Urine RBC None /hpf (0-2) 06/24/21 15:40 Urine WBC 0-4 /hpf (0-5) H 06/24/21 15:40 Ur Squamous Epith Cells 5-10 /hpf (0-5) H 06/24/21 15:40 Amorphous Sediment Not Reportable 06/24/21 15:40 Urine Bacteria 1+ /hpf (NONE) H 06/24/21 15:40 Discharge Plan Discharge Patient Disposition: Home Clinical Impression: Sacroiliitis Condition: Stable Prescriptions: New hydrocodone-acetaminophen 5-325 mg tablet 1 tab PO Q6H PRN (Reason: pain) Qty: 10 0RF diclofenac sodium 75 mg tablet,delayed release (DR/EC) 75 mg PO Q12H PRN (Reason: pain) Qty: 20 0RF prednisone 20 mg tablet 20 mg PO TID Qty: 15 0RF Rx Instructions: P.o. 3 times daily x3 days, 1 p.o. twice daily x2 days, 1 p.o. daily x2 days No Action hydrocodone-acetaminophen 7.5-325 mg tablet 1 tab PO BID PRN0RF Anbesol (benzocaine) 10 % gel 1 applic MUCOUS MEM BID PRN0RF Rx Instructions: apply to area with swab nitrofurantoin monohyd/m-cryst [Macrobid] 100 mg capsule 100 mg PO BID Qty: 28 0RF Rx Instructions: must administer with a meal/food lisinopril 40 mg tablet 40 mg PO DAILY Qty: 30 2RF venlafaxine 75 mg capsule,extended release 24hr See Rx Instructions .ROUTE .COMPLEX Qty: 30 0RF Dose Instruction: TAKE ONE CAPSULE BY MOUTH ONCE DAILY IN THE MORNING Rx Instructions: TAKE ONE CAPSULE BY MOUTH ONCE DAILY IN THE MORNING hydrochlorothiazide 12.5 mg tablet See Rx Instructions .ROUTE .COMPLEX Qty: 30 0RF Dose Instruction: TAKE ONE TABLET BY MOUTH ONCE DAILY IN THE MORNING Rx Instructions: TAKE ONE TABLET BY MOUTH ONCE DAILY IN THE MORNING Discharge Orders: Discharge ED (Routine); Ordered 06/24/21 Ordered By: Cedric Daily Discharge Diet: Usual diet Discharge Activity: Resume usual activity Patient Instructions: Opioid Safety Activity Restrictions/Additional Instructions: Follow-up with your primary care doctor if not improving the next 4 to 5 days Coding Level of Care Code ED Head Of Marketing for Jerrica Fwd Exam Comprehensive
[2021-06-24 15:55] LABS: Basophils % 0.4 %; Eosinophils # 0.2 10^3/uL (0.0-0.8); Hematocrit 42.2 % (37.0-47.0); Hemoglobin 14.1 g/dL (11.5-15.3); Lymphocytes # 2.8 10^3/uL (0.8-4.8); Lymphocytes % 34.5 %; Mean Corpuscular HGB Conc 33.4 g/dL (30.0-36.0); Mean Corpuscular Hemoglobin 31.5 pg (28.0-34.0); Mean Corpuscular Volume 94.2 fl (81-99); Mean Platelet Volume 11.5 fL (7.4-10.4); Monocytes # 0.6 10^3/uL (0.2-0.9); Monocytes % 7.9 %; Neutrophils # 4.48 10^3/uL (1.8-7.7); Nucleated Red Blood Cells % 0 %; Platelet Count 215 10^3/cmm (130-400); Red Blood Count 4.48 10^6/uL (4.1-5.3); Red Cell Distribution Width 13.2 % (12.1-15.1); White Blood Count 8.1 10^3/uL (4.0-10.0)
[2021-06-24 15:58] VITALS: RESP 22
[2021-06-24] MEDS: morphine 4 mg/mL SDV 1 mL IVP (15:58)
[2021-06-24] MEDS: ondansetron 2 mg/ML SDV 2 mL 4 MG IVP (15:58)
[2021-06-24] MEDS: sodium chloride 0.9% 1,000 ML 999 ML IV (16:00)
[2021-06-24 16:10] VITALS: BP 169/111; PULSE 80; RESP 18; O2SAT 94
[2021-06-24 16:24] LABS: Blood Urea Nitrogen 12 mg/dL (6-20); Carbon Dioxide 20 mmol/L (22-29); Chloride 105 mmol/L (98-107); Glomerular Filtration Rate 77.9 mL/min (90-130); Glucose 89 mg/dL (65-115); Osmolality Calculated 277 mOsm/kg (285-295); Sodium 134 mmol/L (136-145)
[2021-06-24 16:30] VITALS: BP 169/111; PULSE 80; RESP 18; O2SAT 94
--- NOTE | 2021-06-24 16:30 | PC.NURSE ---
Notified Dr. Daily of post void 98ml.
--- NOTE | 2021-06-24 16:31 | PC.NURSE ---
Patient states she does not want anymore pain medication. she states it made her sick but she wanted to try, after morphine, pain level the same, no change in level, declined wanting other pain options at this time.
[2021-06-24 16:35] LABS: Anion Gap 13.4 (5-19); Potassium 4.4 mmol/L (3.5-5.1)
[2021-06-24 16:49] LABS: Specific Gravity, Urine 1.015 (1.005-1.030); Urine Appearance SL Hazy (CLEAR); Urine Color Yellow (Yellow); pH Urine 6.5 (5-7)
[2021-06-24 16:50] LABS: Bilirubin Urine Neg (Negative); Blood Urine Neg (Negative); Glucose Urine UA Norm (Normal); Ketones Urine Negative (Negative); Leukocyte Esterase Urine Negative (Negative); Nitrate Urine Negative (Negative); Protein Urine Neg (Negative); Urobilinogen Urine Norm (Negative)
[2021-06-24 16:51] LABS: Add Urine Culture? No; Add Urine Microscopic? YES; Bacteria Urine 1+ /hpf; WBC Urine 0-4 /hpf (0-5)
--- NOTE | 2021-06-24 16:59 | CTR_ITS ---
PROCEDURE INFORMATION: Exam: CT Abdomen And Pelvis With Contrast Exam date and time: 06/24/2021 5:25 PM Age: 46 years old Clinical indication: Abdominal pain; Right; Patient HX: C/O R flank pain x a couple weeks w episode of hematuria and HX of stones; Additional info: Abd pain TECHNIQUE: Imaging protocol: Computed tomography of the abdomen and pelvis with contrast. Radiation optimization: All CT scans at this facility use at least one of these dose optimization techniques: automated exposure control; mA and/or kV adjustment per patient size (includes targeted exams where dose is matched to clinical indication); or iterative reconstruction. Contrast material: OMNI 300; Contrast volume: 95 ml; Contrast route: INTRAVENOUS (IV); COMPARISON: CT kidney stone [id number] 09/09/2020 7:30 PM RADIATION DOSE METRICS: Total DLP (mGy-cm): 1751.33 FINDINGS: Liver: Somewhat elongated right hepatic lobe with no significant overall hepatomegaly or cirrhosis. No discrete mass. Gallbladder and bile ducts: Absent gallbladder. No abnormal bile duct dilatation. Pancreas: Normal. No ductal dilation. Spleen: Normal. No splenomegaly. Adrenal glands: Normal. No mass. Kidneys and ureters: No obstructing calculus. No hydronephrosis. Stomach and bowel: Early colonic diverticular formation without acute diverticulitis. Small to moderate stool burden. Appendix: No evidence of appendicitis. Intraperitoneal space: Unremarkable. No free air. No significant fluid collection. Arteries: Unremarkable. No abdominal aortic aneurysm. Lymph nodes: No enlarged lymph nodes. Urinary bladder: Unremarkable as visualized. Reproductive: There is a left ovarian/adnexal cystic structure, measuring 2.9 by 2.3 by 2.7 cm which may be ovarian or paraovarian cyst. No large solid elements or acute regional inflammatory response. No obvious regional ovarian stromal edema. Otherwise unremarkable uterine and no right adnexal region mass. Bones/joints: No acute fracture. Soft tissues: There is a lipoma within the left oblique abdominal musculature, measuring about 4.5 by 2.1 cm, without significant change. CT/CT abdomen pelvis w con* [id number] IMPRESSION: 1. No obstructing calculi, suspicious renal mass or other acute urinary tract findings. Follow-up cystoscopy may be helpful if hematuria persists. 2. Left ovarian/adnexal cystic structure measuring 2.9 cm. This is likely benign. However follow-up ultrasound/duplex imaging correlation may be considered if clinically indicated. 3. Left lateral abdominal wall lipoma, unchanged. 4. Early colonic diverticular formation without diverticulitis.
[2021-06-24] MEDS: iohexol 300 mg/mL 100 mL Btl IV (17:24)
[2021-06-24] MEDS: ketorolac 30 mg/mL INJ IVP (17:52)
[2021-06-24] MEDS: dexamethasone 10 mg/mL INJ IVP (17:53)
--- NOTE | 2021-06-24 18:12 | PC.NURSE ---
30mg of Ketorolac was not given. Med was scanned and saved but patient refused. Tried to edit medication but it would not allow it.
[2021-06-24 18:24] VITALS: BP 154/82; PULSE 77; RESP 18; O2SAT 96
== END 2021-06-24 18:26 | disposition home or self-care (01) ==
PROVIDERS: Emergency Provider Family Medicine
DX: M46.1 Sacroiliitis, not elsewhere classified (principal); Z79.891 Long term (current) use of opiate analgesic; Z87.442 Personal history of urinary calculi; I10 Essential (primary) hypertension
CPT/HCPCS: 51798; 74177; 80048; 81001; 85025; 96361; 96374; 96375; 99284; J1100; J1885; J2270; J2405; J7030; Q9967

== ENCOUNTER 2023-04-09 15:17 | Emergency (ER) | payer MEDICARE, MEDICAID, SELFPAY ==
[2023-04-09 15:25] VITALS: BP 172/104; PULSE 69; RESP 14; TEMP 36.7; O2SAT 97; BMI 46.3
--- NOTE | 2023-04-09 16:31 | ECG_ITS ---
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 Measurements Intervals [place] Rate: 67 P: 25 RI: 138 QRS: -28 QRSD: 93 T: 15 QT: 394 QTc: 416 Interpretive Statements SINUS RHYTHM BORDERLINE LEFT AXIS DEVIATION [QRS AXIS < -20] LOW QRS VOLTAGE IN PRECORDIAL LEADS [QRS DEFLECTION < 1.0 mV IN CHEST LEADS] VOLTAGE CRITERIA FOR LVH [MEETS CRITERIA IN ONE OF: R(aVL), S(V1), R(V5), R(V5/V6)+S(V1)] NONSPECIFIC T-WAVE ABNORMALITY No previous ECG available for comparison Electronically Signed On 04-09-2023 19:54:16 CASINO [employer]OST by Jacob Cason M.D. [email or web address]/store/[id number]
--- NOTE | 2023-04-09 16:31 | XRR_ITS ---
PROCEDURE INFORMATION: Exam: XR Chest Exam date and time: 04/09/2023 4:36 PM Age: 48 years old Clinical indication: Pain; Chest pressure; Additional info: Cp TECHNIQUE: Imaging protocol: Radiologic exam of the chest. Views: 1 view. COMPARISON: CT abdomen pelvis w con* [id number] 06/24/2021 5:25 PM FINDINGS: Lungs: No consolidation. Pleural spaces: No pleural effusion. No pneumothorax. Heart/Mediastinum: No cardiomegaly. Bones/joints: No acute findings. XR/XR chest 1V portable [id number] IMPRESSION: No acute findings.
--- NOTE | 2023-04-09 16:43 | USR_ITS ---
PROCEDURE INFORMATION: Exam: US Duplex Left Lower Extremity Veins, Limited Exam date and time: 04/09/2023 5:02 PM Age: 48 years old Clinical indication: Pain; Leg, lower; Left TECHNIQUE: Imaging protocol: Real-time duplex ultrasound of the left extremity with 2-D alicea scale, color Doppler flow and spectral waveform analysis including responses to compression and other maneuvers (when performed) with image documentation. Limited exam focused on the left lower extremity veins. COMPARISON: CT abdomen pelvis w con* [id number] 06/24/2021 5:25 PM FINDINGS: Veins: Patent without thrombus. Normal Doppler waveforms. Normal compressibility and/or augmentation response. US/CV venous duplex [facility] [id number] IMPRESSION: No evidence of deep vein thrombosis.
--- NOTE | 2023-04-09 16:59 | ED_ITS ---
HPI - Chest Pain 2 General: Chief Complaint: Chest Pain Stated Complaint: chest pain, red streak in left leg Time Seen by Provider: 04/09/23 16:28 Source: patient Mode of arrival: ambulatory Limitations: no limitations History of Present Illness: 48-year-old female who states she has keller d some streaking up her left leg with pain she also has had chest pain over the last 3 days she has had history of clot in the past and is concerned about a clot since mild dyspnea denies any fever she rates her chest pain a 3 out of 10. Associated symptoms: Deny abdominal pain, dyspnea, fever(s), nausea or vomiting Review of Systems 2 Const: Denies: fever(s) or chills ENMT: Denies: throat pain or dental pain Card: Reports: chest pain Resp: Denies: dyspnea GI: Denies: abdominal pain, nausea, vomiting or diarrhea Musc: Reports: extremity pain; Denies: neck pain or back pain Skin/Breast: Denies: rash Neuro: Denies: headache(s) PFSH ED 2 PFSH: Medical History History of kidney stones Hypertension Depression Surgical History S/P extracorporeal shock wave therapy Family History Father Diabetes Multiple sclerosis Mother Hypertension Social History Smoking and tobacco/nicotine status: never used tobacco/nicotine Alcohol intake: never Substance/Drug Use: never Marital status: Current occupational status: disabled Physical Exam 2 Const: COMMON NORMALS: no acute distress, patient oriented x3 and healthy appearing HENMT: COMMON NORMALS: normocephalic and atraumatic HEAD & SCALP: n ormocephalic and atraumatic Eye: COMMON NORMALS: Equal, round and reactive pupils present and EOMs intact bilaterally PUPIL: Yes Equal, round and reactive pupils present Neck/C-Spine: COMMON NORMALS: full ROM Chest: COMMONS NORMALS: normal inspection of the chest Resp: COMMON NORMALS: normal respiratory effort Cardio: COMMON NORMALS: regular rate, regular rhythm and No murmurs present (Cardio) RATE: regular rate RHYTHM: regular rhythm Extremity: COMMON NORMALS: full ROM NARRATIVE EXTREMITY EXAM: Tenderness noted to left calf Neuro: COMMON NORMALS: patient oriented x3, moves all extremities and no focal motor deficits Psych: COMMON NORMALS: mental status grossly normal, Normal thought process present and cooperative THOUGHT PROCESS: Normal thought process present Skin: COMMON NORMALS: no rashes or lesions noted and no wounds GENERAL SKIN EXAM: no rashes or lesions noted Course 2 Vital Signs: Vital signs: Vital Signs Temperature 98.0 F 04/09/23 15:25 Pulse Rate 65 04/09/23 18:12 Respiratory Rate 20 H 04/09/23 18:12 Blood Pressure 205/138 04/09/23 18:12 Pulse Oximetry 96 04/09/23 18:12 Oxygen Delivery Me thod Room Air 04/09/23 15:25 MDM - Chest Pain Medical Decision Making Patient presents here with left leg pain along with chest pain ultrasound showed no signs of DVT CTA is normal her troponin here is negative no signs of acute coronary syndrome she feels improved here she is stable for discharge she is follow-up with PCP and return if worsening. Medical Records I reviewed the patient's medical records. Lab Data I reviewed the patient's lab results. 04/09/23 17:28 04/09/23 17:28 Radiology Impressions Chest X-Ray 04/09/23 16:31 IMPRESSION: No acute findings. Venous Duplex 04/09/23 16:43 IMPRESSION: No evidence of deep vein thrombosis. Chest CTA 04/09/23 18:05 IMPRESSION: 1. No pulmonary embolus. 2. No focal consolidation. Laboratory Results WBC 7.79 10^3/uL (3.29-11.43) 04/09/23 17: RBC 4.39 10^6/uL (3.85-5.65) 04/09/23 17:28 Hgb 14.00 g/dL (11.27-16.99) 04/09/23 17: Hct 40.7 % (36-47) 04/09/23 17:28 MCV 92.7 fl (85-98) 04/09/23 17:28 MCH 31.9 pg (27-33) 04/09/23 17: MCHC 34.4 g/dL (30-55) 04/09/23 17:28 RDW 13.4 % (12.1-15.1) 04/09/23 17:28 Plt Count 203 10^3/cmm (157-399) 04/09/23 17: MPV 10.8 fL (7.4-10.4) H 04/09/23 17:28 Neut % (Auto) 66.2 % 04/09/23 17: Lymph % (Auto) 25.0 % 04/09/23 17: [place] % (Auto) 6.0 % 04/09/23 17: Eos % (Auto) 2.1 % 04/09/23 17:28 Baso % (Auto) 0.4 % 04/09/23 17: Neut # (Auto) 5.16 10^3/uL (1.8-7.7) 04/09/23: Lymph # (Auto) 2.0 10^3/uL (0.8-4.8) 04/09/23 17: [place] # (Auto) 0.5 10^3/uL (0.2-0.9) 04/09/23 17: Eos # (Auto) 0.2 10^3/uL (0.0-0.8) 04/09/23 17: Baso # (Auto) 0.0 10^3/uL (0.0-0.1) 04/09/23: Nucleated RBC % (auto) 0 % 04/09/23: Nucleated RBCs # 0.0 /100WBC 04/09/23: D-Dimer 0.64 ug/mLFEU (0-0.59) H 04/09/23 17:28 Sodium 142 mmol/L (136-145) 04/09/23 17: Potassium 4.2 mmol/L (3.5-5.1) 04/09/23 17: Chloride 107 mmol/L (98-107) 04/09/23 17: Carbon Dioxide 25 mmol/L (22-29) 04/09/23 17: Anion Gap 14.2 (5-19) 04/09/23 17:28 BUN 13 mg/dL (6-20) 04/09/23 17:28 Creatinine 0.7 mg/dL (0.5-0.9) 04/09/23 17: GFR Calculation 90.1 mL/min (90-130) 04/09/23 17:28 Glucose 120 mg/dL (65-115) H 04/09/23 17:28 Calculated Osmolality 295 mOsm/kg (285-295) 04/09/23 17:28 Calcium 8.8 mg/dL (8.5-10.5) 04/09/23 17:28 Total Bilirubin 0.2 mg/dL (0.15-1.2) 04/09/23 17:28 AST 20 U/L (0-32) 04/09/23 17:28 ALT 29 U/L (0-33) 04/09/23 17:28 Alkaline Phosphatase 90 U/L (35-105) 04/09/23 17:28 Troponin T Baseline < 6 ng/L (0-10) 04/09/23 17:28 Total Protein 6.1 g/dL (6.6-8.7) L 04/09/23 17:28 Albumin 3.9 g/dL (3.5-5.2) 04/09/23 17:28 Globulin 2.2 g/dL (1.3-4.6) 04/09/23 17:28 All radiology interpretation(s) finalized by discharge EKG Data EKG 1: I personally reviewed and interpreted this EKG as follows: EKG interpretation date: 04/09/23 EKG interpretation time: 15:23 Interpretation: nsr hr [address] or t wave abnormalities qrs 93 qtc 409 Discharge Plan Discharge Patient Disposition: Home Clinical Impression: Chest pain, Left leg pain Condition: Stable Prescriptions: No Action Ventolin HFA 90 mcg/actuation HFA aerosol inhaler 1 puff INHALATION TID PRN (Reason: Shortness Of Breath Or Wheezing) Discharge Orders: Discharge ED (Routine); Ordered 04/09/23 Ordered By: Kj Panchal Discharge Diet: Advance as tolerated Discharge Activity: Resume usual activity Patient Instructions: Chest Pain (ED), Leg Pain (ED) Coding Level of Care Code ED Drivers License Examiner for Jerrica Clifford
[2023-04-09 17:29] VITALS: BP 176/115; PULSE 65; RESP 25; O2SAT 95
[2023-04-09 17:55] LABS: Basophils % 0.4 %; Eosinophils # 0.2 10^3/uL (0.0-0.8); Eosinophils % 2.1 %; Hematocrit 40.7 % (36-47); Mean Corpuscular HGB Conc 34.4 g/dL (30-55); Mean Corpuscular Hemoglobin 31.9 pg (27-33); Mean Corpuscular Volume 92.7 fl (85-98); Mean Platelet Volume 10.8 fL (7.4-10.4); Monocytes # 0.5 10^3/uL (0.2-0.9); Neutrophils # 5.16 10^3/uL (1.8-7.7); Neutrophils % 66.2 %; Nucleated Red Blood Cells % 0 %; Platelet Count 203 10^3/cmm (157-399); Red Blood Count 4.39 10^6/uL (3.85-5.65); Red Cell Distribution Width 13.4 % (12.1-15.1); White Blood Count 7.79 10^3/uL (3.29-11.43)
[2023-04-09 18:02] LABS: D Dimer 0.64 ug/mLFEU (0-0.59)
[2023-04-09 18:05] LABS: Troponin(5th) Baseline < 6 ng/L (0-10)
--- NOTE | 2023-04-09 18:05 | CTR_ITS ---
PROCEDURE INFORMATION: Exam: CTA Chest With Contrast Exam date and time: 04/09/2023 6:57 PM Age: 48 years old Clinical indication: Pain; Chest pressure; Additional info: Cp TECHNIQUE: Imaging protocol: Computed tomographic angiography of the chest with contrast. Exam focused on the arteries. 3D rendering (Not supervised by radiologist): MIP and/or 3D reconstructed images were created by the technologist. Radiation optimization: All CT scans at this facility use at least one of these dose optimization techniques: automated exposure control; mA and/or kV adjustment per patient size (includes targeted exams where dose is matched to clinical indication); or iterative reconstruction. Contrast material: OMNI 350; Contrast volume: 100 ml; Contrast route: INTRAVENOUS (IV); COMPARISON: CR (CHEST, ) 04/09/2023 4:36 PM RADIATION DOSE METRICS: Total DLP (mGy-cm): 540 FINDINGS: Pulmonary arteries: Normal. No pulmonary emboli. Aorta: Unremarkable. No aortic aneurysm. No aortic dissection. Lungs: Unremarkable. No consolidation. No masses. Pleural spaces: Unremarkable. No pneumothorax. No pleural effusion. Heart: Unremarkable. No cardiomegaly. No pericardial effusion. Lymph nodes: Unremarkable. No enlarged lymph nodes. Bones/joints: Unremarkable. No acute fracture. Soft tissues: Unremarkable. CT/CT angio chest PE protcl [id number] IMPRESSION: 1. No pulmonary embolus. 2. No focal consolidation.
[2023-04-09 18:12] VITALS: BP 205/138; PULSE 65; RESP 20; O2SAT 96
[2023-04-09 18:15] LABS: Alanine Aminotransferase 29 U/L (0-33); Albumin Level 3.9 g/dL (3.5-5.2); Alkaline Phosphatase 90 U/L (35-105); Anion Gap 14.2 (5-19); Aspartate Amino Transferase 20 U/L (0-32); Blood Urea Nitrogen 13 mg/dL (6-20); Calcium 8.8 mg/dL (8.5-10.5); Carbon Dioxide 25 mmol/L (22-29); Chloride 107 mmol/L (98-107); Globulin 2.2 g/dL (1.3-4.6); Glomerular Filtration Rate 90.1 mL/min (90-130); Glucose 120 mg/dL (65-115); Osmolality Calculated 295 mOsm/kg (285-295); Potassium 4.2 mmol/L (3.5-5.1); Sodium 142 mmol/L (136-145); Total Bilirubin 0.2 mg/dL (0.15-1.2); Total Protein 6.1 g/dL (6.6-8.7)
--- NOTE | 2023-04-09 18:31 | ECG_ITS ---
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 Measurements Intervals [place] Rate: 64 P: 53 ND: 158 QRS: -26 QRSD: 88 T: 0 QT: 410 QTc: 426 Interpretive Statements SINUS RHYTHM BORDERLINE LEFT AXIS DEVIATION [QRS AXIS < -20] MODERATE VOLTAGE CRITERIA FOR LVH, CONSIDER NORMAL VARIANT [MEETS CRITERIA IN ONE OF: R(aVL), S(V1), R(V5), R(V5/V6)+S(V1)] NONSPECIFIC T-WAVE ABNORMALITY Compared to ECG 04/09/2023 15:23:09 No significant changes Electronically Signed On 04-09-2023 20:18:52 [employer] by Jacob Cason M.D. [email or web address] [id number]
[2023-04-09] MEDS: iohexol 350 mg/mL 500 mL Btl (per mL) IV (19:08)
[2023-04-09 19:51] VITALS: BP 176/115; PULSE 66; O2SAT 96
== END 2023-04-09 19:52 | disposition home or self-care (01) ==
PROVIDERS: Emergency Provider Emergency Medicine
DX: R07.9 Chest pain, unspecified (principal); M79.605 Pain in left leg; I10 Essential (primary) hypertension
CPT/HCPCS: 36415; 71045; 71275; 80053; 84484; 85025; 85378; 93005; 93971; 99285; Q9967

== ENCOUNTER → 2023-07-01 15:30 | Outpatient (BNVA) | payer MEDICARE, MEDICAID, SELFPAY | PROVIDERS: PCP Nurse Practitioner Family; Visit Provider Nurse Practitioner Family | DX: I10 Essential (primary) hypertension (principal); R63.5 Abnormal weight gain; F32.9 Major depressive disorder, single episode, unspecified | CPT/HCPCS: 80053; 80061; 84443; 85025 ==

== ENCOUNTER 2023-07-16 17:54 | Emergency (ER) | payer MEDICARE, MEDICAID, SELFPAY ==
[2023-07-16 17:57] VITALS: BP 158/100; PULSE 87; RESP 16; TEMP 36.7; O2SAT 97
--- NOTE | 2023-07-16 18:08 | USR_ITS ---
PROCEDURE INFORMATION: Exam: US Nonobstetric Pelvis; Complete Exam date and time: 07/16/2023 6:34 PM Age: 48 years old Clinical indication: Menstruation abnormalities; Excessive menstruation; Other: Non-stop, heavy vaginal bleeding since onset of last menses 06/28/2023 LABS AND CLINICAL REPORTS: Last menstrual period start date: 06/28/2023 TECHNIQUE: Imaging protocol: Transabdominal pelvic nonobstetric ultrasound. Complete exam. Real time ultrasound with image documentation. COMPARISON: CT abdomen pelvis w con* [id number] 06/24/2021 5:25 PM FINDINGS: Uterus: Uterus measures 12.2 cm x 6.23 cm x 4.51 cm. Fibroid uterus. There is irregularity of the anterior aspect of the myometrium compatible with a scar. Endometrium measures approximately 7 mm. Right ovary/adnexa: Not well visualized. Left ovary/adnexa: Left ovary measures 3.6 cm x 3.2 cm x 2 cm. Flow is visualized. No evidence of adnexal mass. Intraperitoneal space: No significant free fluid. US/US pelv w/transvag [id number] IMPRESSION: 1. Limited exam. Fibroid uterus. No evidence of endometrial thickening. 2. Right ovary/adnexa nonvisualized. Limited evaluation of the left ovary. Flow is visualized.
--- NOTE | 2023-07-16 18:20 | W.ED.FEMALGU ---
HPI - Female Genitourinary General: Chief complaint: Urogenital-Female Stated complaint: grayson, vaginal bleeding for 18 days Time Seen by Provider: 07/16/23 18:08 [facility] ED PFSH: Medical History History of kidney stones Hypertension Depression Surgical History S/P extracorporeal shock wave therapy Family History Father Diabetes Multiple sclerosis Mother Hypertension Social History Smoking and tobacco/nicotine status: never used tobacco/nicotine Alcohol intake: never Substance/Drug Use: never Marital status: Current occupational status: disabled Course Vital Signs: Vital signs: Vital Signs Temperature 98.1 F 07/16/23 17:57 Pulse Rate 87 07/16/23 17:57 Respiratory Rate 16 07/16/23 17:57 Blood Pressure 158/100 07/16/23 17:57 Pulse Oximetry 97 07/16/23 17:57 Discharge Plan Discharge Condition: Stable Prescriptions: No Action hydrochlorothiazide 25 mg tablet 25 mg PO QAM Qty: 30 0RF Ventolin HFA 90 mcg/actuation HFA aerosol inhaler 1 puff INHALATION TID PRN (Reason: Shortness Of Breath Or Wheezing) Referrals: Yazmin Rea NP [Primary Care Provider] - Coding Level of Care Code ED Soft Sugar Operator Head for Jerrica Clifford
--- NOTE | 2023-07-16 18:30 | ED_ITS ---
HPI - Female Genitourinary 2 General: Chief complaint: Urogenital-Female Stated complaint: dr galicia, vaginal bleeding for 18 days Time Seen by Provider: 07/16/23 18:08 Source: patient Mode of arrival: ambulatory Limitations: no limitations History of Present Illness: 48-year-old female who states she has keller d heavy vaginal bleeding for the last 3 weeks. States she has been passing clots. States she has had some lightheadedness some lower abdominal cramping. She has never had any issues with abnormal periods or heavy bleeding in the past. She does not have a spinner frame her PCP had sent her here. Associated symptoms: Deny abdominal pain, headache(s) or nausea Review of Systems 2 Const: Denies: fever(s), chills, body aches or change in appetite Eyes: Denies: eye discomfort ENMT: Denies: throat pain or dental pain Card: Denies: chest pain Resp: Denies: dyspnea GI: Denies: abdominal pain, nausea, vomiting or diarrhea : Reports: vaginal bleeding Musc: Denies: neck pain or back pain Skin/Breast: Denies: rash Neuro: Denies: headache(s) PFSH ED 2 PFSH: Medical History History of kidney stones Hypertension Depression Surgical History S/P extracorporeal shock wave therapy Family History Father Diabetes Multiple sclerosis Mother Hypertension Social History Smoking and tobacco/nicotine status: never used tobacco/nicotine Alcohol intake: never Substance/Drug Use: never Marital status: Current occupational status: disabled Physical Exam 2 Const: COMMON NORMALS: no acute distress, patient oriented x3 and healthy appearing HENMT: COMMON NORMALS: normocephalic and atraumatic HEAD & SCALP: n ormocephalic and atraumatic Neck/C-Spine: COMMON NORMALS: full ROM and supple Chest: COMMONS NORMALS: normal inspection of the chest Resp: COMMON NORMALS: normal respiratory effort Cardio: COMMON NORMALS: regular rate, regular rhythm and No murmurs present (Cardio) RATE: regular rate RHYTHM: regular rhythm GI: COMMON NORMALS: Normal to inspection, nondistended, normoactive bowel sounds present, Soft to palpation, non-tender and no masses PALPATION: Yes Soft to palpation Extremity: COMMON NORMALS: normal to inspection and full ROM Neuro: COMMON NORMALS: patient oriented x3, moves all extremities and no focal motor deficits Psych: COMMON NORMALS: mental status grossly normal, Normal thought process present and cooperative THOUGHT PROCESS: Normal thought process present Skin: COMMON NORMALS: no rashes or lesions noted and no wounds GENERAL SKIN EXAM: no rashes or lesions noted Course 2 Vital Signs: Vital signs: Vital Signs Temperature 98.1 F 07/16/23 17:57 Pulse Rate 87 07/16/23 17:57 Respiratory Rate 16 07/16/23 17:57 Blood Pressure 158/100 07/16/23 17:57 Pulse Oximetry 97 07/16/23 17:57 MDM - Female Medical Decision Making Patient presents here with increased vaginal bleeding her hemoglobin here is normal ultrasound did show some uterine fibroids she is well-appearing here vitals are normal she is stable for discharge we will follow-up with DIRECT MARKETING SPECIALIST she is return if worsening. Medical Records I reviewed the patient's medical records. Lab Data I reviewed the patient's lab results. 07/16/23 18:25 07/16/23 18:25 Radiology Impressions Pelvic/Transvag US 07/16/23 18:08 IMPRESSION: 1. Limited exam. Fibroid uterus. No evidence of endometrial thickening. 2. Right ovary/adnexa nonvisualized. Limited evaluation of the left ovary. Flow is visualized. Laboratory Results WBC 9.88 10^3/uL (3.29-11.43) 07/16/23 18:25 RBC 4.21 10^6/uL (3.85-5.65) 07/16/23 18:25 Hgb 13.30 g/dL (11.27-16.99) 07/16/23 18: Hct 38.0 % (36-47) 07/16/23 18:25 MCV 90.3 fl (85-98) 07/16/23 18:25 MCH 31.6 pg (27-33) 07/16/23 18: MCHC 35.0 g/dL (30-55) 07/16/23 18:25 RDW 13.2 % (12.1-15.1) 07/16/23 18:25 Plt Count 223 10^3/cmm (157-399) 07/16/23 18: MPV 10.9 fL (7.4-10.4) H 07/16/23 18:25 Neut % (Auto) 64.0 % 07/16/23 18:25 Lymph % (Auto) 30.2 % 07/16/23 18:25 [place] % (Auto) 3.7 % 07/16/23 18:25 Eos % (Auto) 1.6 % 07/16/23 18:25 Baso % (Auto) 0.2 % 07/16/23 18: Neut # (Auto) 6.32 10^3/uL (1.8-7.7) 07/16/23 18: Lymph # (Auto) 3.0 10^3/uL (0.8-4.8) 07/16/23 18:25 [place] # (Auto) 0.4 10^3/uL (0.2-0.9) 07/16/23 18:25 Eos # (Auto) 0.2 10^3/uL (0.0-0.8) 07/16/23 18: Baso # (Auto) 0.0 10^3/uL (0.0-0.1) 07/16/23 18: Nucleated RBC % (auto) 0 % 07/16/23 18: Nucleated RBCs # 0.0 /100WBC 07/16/23 18:25 Sodium 142 mmol/L (136-145) 07/16/23 18:25 Potassium 3.5 mmol/L (3.5-5.1) 07/16/23 18:25 Chloride 102 mmol/L (98-107) 07/16/23 18:25 Carbon Dioxide 27 mmol/L (22-29) 07/16/23 18:25 Anion Gap 16.5 (5-19) 07/16/23 18:25 BUN 13 mg/dL (6-20) 07/16/23 18:25 Creatinine 0.9 mg/dL (0.5-0.9) 07/16/23 18:25 GFR Calculation 67.4 mL/min (90-130) L 07/16/23 18:25 Glucose 174 mg/dL (65-115) H 07/16/23 18:25 Calculated Osmolality 298 mOsm/kg (285-295) H 07/16/23 18:25 Calcium 8.6 mg/dL (8.5-10.5) 07/16/23 18:25 Total Bilirubin 0.2 mg/dL (0.15-1.2) 07/16/23 18:25 AST 29 U/L (0-32) 07/16/23 18:25 ALT 34 U/L (0-33) H 07/16/23 18:25 Alkaline Phosphatase 94 U/L (35-105) 07/16/23 18:25 Total Protein 6.3 g/dL (6.6-8.7) L 07/16/23 18:25 Albumin 4.0 g/dL (3.5-5.2) 07/16/23 18:25 Globulin 2.3 g/dL (1.3-4.6) 07/16/23 18:25 HCG, Qual Negative (Negative) 07/16/23 18:25 Blood Type O Positive 07/16/23 18:25 Rho(D) Type Rh positive 07/16/23 18:25 All radiology interpretation(s) finalized by discharge Discharge Plan Discharge Patient Disposition: Home Clinical Impression: Abnormal vaginal bleeding Condition: Stable Prescriptions: No Action hydrochlorothiazide 25 mg tablet 25 mg PO QAM Qty: 30 0RF Ventolin HFA 90 mcg/actuation HFA aerosol inhaler 1 puff INHALATION TID PRN (Reason: Shortness Of Breath Or Wheezing) Discharge Orders: Discharge ED (Routine); Ordered 07/16/23 Ordered By: Kj Panchal Referrals: Emre Bruno MD [Physician] - 1-3 days Yazmin Rea NP [Primary Care Provider] - Discharge Diet: Advance as tolerated Discharge Activity: Resume usual activity Patient Instructions: Abnormal (Dysfunctional) Uterine Bleeding (ED) Coding Level of Care Code ED Grey Stock Recorder for Chg Venessa
[2023-07-16] MEDS: sodium chloride 0.9% 1,000 ML 999 ML IV (18:36)
[2023-07-16 18:48] LABS: Basophils % 0.2 %; Eosinophils # 0.2 10^3/uL (0.0-0.8); Eosinophils % 1.6 %; Lymphocytes % 30.2 %; Mean Corpuscular Hemoglobin 31.6 pg (27-33); Mean Corpuscular Volume 90.3 fl (85-98); Mean Platelet Volume 10.9 fL (7.4-10.4); Monocytes # 0.4 10^3/uL (0.2-0.9); Monocytes % 3.7 %; Neutrophils # 6.32 10^3/uL (1.8-7.7); Nucleated Red Blood Cells % 0 %; Platelet Count 223 10^3/cmm (157-399); Red Blood Count 4.21 10^6/uL (3.85-5.65); Red Cell Distribution Width 13.2 % (12.1-15.1); White Blood Count 9.88 10^3/uL (3.29-11.43)
[2023-07-16 18:59] LABS: Alanine Aminotransferase 34 U/L (0-33); Alkaline Phosphatase 94 U/L (35-105); Anion Gap 16.5 (5-19); Aspartate Amino Transferase 29 U/L (0-32); Blood Urea Nitrogen 13 mg/dL (6-20); Calcium 8.6 mg/dL (8.5-10.5); Carbon Dioxide 27 mmol/L (22-29); Chloride 102 mmol/L (98-107); Creatinine Clr Calc Pharmacy 90.8448; Globulin 2.3 g/dL (1.3-4.6); Glomerular Filtration Rate 67.4 mL/min (90-130); Glucose 174 mg/dL (65-115); Osmolality Calculated 298 mOsm/kg (285-295); Potassium 3.5 mmol/L (3.5-5.1); Sodium 142 mmol/L (136-145); Total Bilirubin 0.2 mg/dL (0.15-1.2); Total Protein 6.3 g/dL (6.6-8.7)
[2023-07-16 19:44] LABS: HCG, Serum Qual Negative (Negative)
[2023-07-16 20:50] VITALS: BP 170/114; PULSE 73; RESP 16; O2SAT 95
[2023-07-16 21:15] VITALS: PULSE 73; RESP 16; O2SAT 95
--- NOTE | 2023-07-17 07:39 | DCPLANNER ---
referral sent to [facility]
== END 2023-07-16 20:56 | disposition home or self-care (01) ==
PROVIDERS: Emergency Provider Emergency Medicine; PCP Nurse Practitioner Family
DX: N93.9 Abnormal uterine and vaginal bleeding, unspecified (principal); I10 Essential (primary) hypertension
CPT/HCPCS: 36415; 76830; 76856; 80053; 84703; 85025; 86900; 99284; J7030

== ENCOUNTER → 2023-07-29 14:26 | Outpatient (BNVA) | payer MEDICARE, MEDICAID, SELFPAY | PROVIDERS: PCP Nurse Practitioner Family; Referring Provider Emergency Medicine; Visit Provider Obstetrics & Gynecology | DX: Z01.419 Encounter for gynecological examination (general) (routine) without abnormal findings (principal) | CPT/HCPCS: 87624 ==

== ENCOUNTER 2023-08-14 08:45 | Emergency (ER) | payer MEDICARE, MEDICAID, SELFPAY ==
[2023-08-14 10:04] VITALS: BP 186/109; PULSE 72; RESP 18; TEMP 36.8; O2SAT 98; BMI 49.1
--- NOTE | 2023-08-14 10:53 | PC.PHAR ---
PT STATES IS HARD HEADED AND WOULD RATHER NOT BE HERE BUT TRIED TO WORK TODAY AND CAN'T GET ANY PAIN RELIEF FROM OTC MEDICATIONS THIS MORNING.
--- NOTE | 2023-08-14 11:04 | CT_ITS ---
WS: [id number] CT ABDOMEN PELVIS TECHNIQUE: Contrast-enhanced CT of the abdomen and pelvis with coronal and sagittal reformatted image s. CLINICAL INFORMATION: abd pain COMPARISON: None. DLP: 1273.[address] scans at [facility] use at least one of these dose optimization techniques: automated e xposure control; mA and/or kV adjustment per patient size (includes targeted exams where dose is matc hed to clinical indication); or iterative reconstruction. FINDINGS: Diffuse fatty infiltration of the liver. Mild hepatomegaly. Normal spleen. Small esophageal hiatal hernia. Air-fluid level in the distended stomach. Normal pancreas. Celiac and SMA are patent. Lung bases are well aerated. Adrenal glands are normal. Normal renal parenchymal enhancement. Tiny L EFT adrenal adenoma. No obstructing renal or ureteral calculi. Normal sigmoid colon. No evidence of s mall or large bowel obstruction. LEFT ovarian cyst measuring 2.1 x 1.7 cm. Fibroid uterus. Thickening at the internal cervical os with cystic and low-attenuation change. This c ould be further evaluated with pelvic ultrasound. CT/CT abdomen pelvis w con* [id number] IMPRESSION: 1. Mild diffuse fatty infiltration of the liver with mild hepatomegaly. 2. Small esophageal hiatal hernia. 3. No hydronephrosis in either kidney. 4. Normal sigmoid colon. 5. Fibroid uterus. Soft tissue thickening and cystic change at the internal ce rvical os may be due to nabothian cysts but indeterminate. Uterus could be furt her evaluated with ultrasound. 6. LEFT ovarian cyst measuring 2.1 x 1.7 cm.
--- NOTE | 2023-08-14 11:17 | ED_ITS ---
HPI - Abdominal Pain 2 General: Chief Complaint: Abdominal Pain Stated Complaint: pelvic pain, back pain Time Seen by Provider: 08/14/23 10:38 Source: patient Mode of arrival: ambulatory History of Present Illness: 48-year-old female presents emergency ro om with complaints of pelvic pain and cramping this been going on intermittently for the last 3 months she is seeing gynecology/surgery on some control to try to cut back on the dysfunctional uterine bleeding he says is gotten worse last few days to the point where she has difficult time doing any of her regular ADLs. She also has nausea and headache. She denies any fever sweats chills no dysuria urgency or frequency she has had kidney stones in the past but states this feels distinctively different from the pain she is experienced with previous kidney stone. She has had evaluations for gynecology and was told she had multiple uterine fibroids MD elicited complaint: abdominal pain Pertinent past history: none Onset (ago): month(s) Pain Consistency: constant Location: Pelvis Severity: severe Quality: sharp Exacerbating factors: nothing Relieving factors: nothing Associated Symptoms: Denies anorexia, belching, bloating, change in bowel habits, change in stool character, chills, coffee ground emesis, constipation, GI cramping, diarrhea, dyspepsia, dysuria, excessive flatus, fever(s), heartburn, hematochezia, hematuria, hematemesis, fecal incontinence, loose stools, melena, nausea, poor appetite, syncope and vomiting Review of Systems 2 Const: Denies: fever(s) or chills Card: Denies: chest pain or syncope Resp: Denies: dyspnea GI: Denies: abdominal pain, nausea, vomiting, hematemesis, coffee ground emesis, heartburn, diarrhea, constipation, bloating, GI cramping, belching, excessive flatus, fecal incontinence, change in bowel habits, change in stool character, hematochezia or melena : Reports: vaginal bleeding; Denies: flank pain, dysuria, urinary frequency, urinary urgency or hematuria Musc: Denies: neck pain or back pain Skin/Breast: Denies: rash PFSH ED 2 PFSH: Medical History History of kidney stones Hypertension Depression Surgical History S/P extracorporeal shock wave therapy Family History Father Diabetes Multiple sclerosis Hypertension Mother Hypertension Heart disease Stroke Thyroid disease Grandmother Hypertension Ovarian cancer Sister Thyroid disease Denies family history of Colon cancer Prostate cancer Hypercholesteremia Breast cancer Uterine cancer Social History Marital status: Physical Exam 2 Const: GENERAL APPEARANCE: cooperative and comfortable O RIENTATION/CONSCIOUSNESS: Yes awake, Yes oriented to person, Yes oriented to place and Yes oriented to time HENMT: COMMON NORMALS: normocephalic, atraumatic and hearing grossly normal bilaterally HEAD & SCALP: normocephalic and atraumatic Resp: COMMON NORMALS: normal respiratory effort, No retractions, No use of accessory muscles and clear to auscultation bilaterally AUSCULTATION: clear to auscultation bilaterally Cardio: COMMON NORMALS: regular rate, regular rhythm and No murmurs present (Cardio) RATE: regular rate RHYTHM: regular rhythm GI: COMMON NORMALS: No hepatosplenomegaly present AUSCULTATION: Yes normoactive bowel sounds PALPATION: Yes Tenderness to palpation present (GI) (Suprapubic), No Guarding due to palpation present (GI) and Yes No hepatosplenomegaly present Extremity: COMMON NORMALS: normal to inspection, capillary refill normal, no clubbing, cyanosis or edema, no calf tenderness and no pedal edema Neuro: SENSORIUM/ORIENTATION: Yes oriented to person, Yes oriented to place and Yes oriented to time Skin: COMMON NORMALS: no rashes or lesions noted GENERAL SKIN EXAM: no rashes or lesions noted Course 2 Vital Signs: Vital signs: Vital Signs Temperature 98.2 F 08/14/23 15:30 Pulse Rate 70 08/14/23 15:30 Respiratory Rate 16 08/14/23 15:30 Blood Pressure 174/115 08/14/23 15:30 Pulse Oximetry 99 08/14/23 15:30 Oxygen Delivery Me thod Room Air 08/14/23 13:08 MDM - Abdominal Pain Medical Decision Making CT does not show anything acute hemoglobin stable I contacted Dr. Bruno he recommends prior melena 2 tablets twice daily today then 2 tablets daily for 5 days then 1 tablet daily until the packet is completed. Hydrocodone given for pain. Follow-up with Dr. Bruno in the office as soon as she is able for further treatment options. Medical Records I reviewed the patient's medical records. Lab Data I reviewed the patient's lab results. 08/14/23 11:33 08/14/23 11:33 Labs/Radiology: Radiology Impressions Abdomen/Pelvis CT 08/14/23 11:04 IMPRESSION: 1. Mild diffuse fatty infiltration of the liver with mild hepatomegaly. 2. Small esophageal hiatal hernia. 3. No hydronephrosis in either kidney. 4. Normal sigmoid colon. 5. Fibroid uterus. Soft tissue thickening and cystic change at the internal cervical os may be due to nabothian cysts but indeterminate. Uterus could be further evaluated with ultrasound. 6. LEFT ovarian cyst measuring 2.1 x 1.7 cm. Laboratory Results WBC 8.87 10^3/uL (3.29-11.43) 08/14/23 11:33 RBC 4.02 10^6/uL (3.85-5.65) 08/14/23 11:33 Hgb 12.80 g/dL (11.27-16.99) 08/14/23 11:33 Hct 37.9 % (36-47) 08/14/23 11:33 MCV 94.3 fl (85-98) 08/14/23 11:33 MCH 31.8 pg (27-33) 08/14/23 11:33 MCHC 33.8 g/dL (30-55) 08/14/23 11:33 RDW 14.0 % (12.1-15.1) 08/14/23 11:33 Plt Count 260 10^3/cmm (157-399) 08/14/23 11:33 MPV 10.8 fL (7.4-10.4) H 08/14/23 11:33 Neut % (Auto) 70.6 % 08/14/23 11:33 Lymph % (Auto) 21.5 % 08/14/23 11:33 [place] % (Auto) 6.3 % 08/14/23 11:33 Eos % (Auto) 0.8 % 08/14/23 11:33 Baso % (Auto) 0.3 % 08/14/23 11:33 Neut # (Auto) 6.26 10^3/uL (1.8-7.7) 08/14/23 11:33 Lymph # (Auto) 1.9 10^3/uL (0.8-4.8) 08/14/23 11:33 [place] # (Auto) 0.6 10^3/uL (0.2-0.9) 08/14/23 11:33 Eos # (Auto) 0.1 10^3/uL (0.0-0.8) 08/14/23 11:33 Baso # (Auto) 0.0 10^3/uL (0.0-0.1) 08/14/23 11:33 Nucleated RBC % (auto) 0 % 08/14/23 11:33 Nucleated RBCs # 0.0 /100WBC 08/14/23 11:33 Sodium 142 mmol/L (136-145) 08/14/23 11:33 Potassium 4.1 mmol/L (3.5-5.1) 08/14/23 11:33 Chloride 110 mmol/L (98-107) H 08/14/23 11:33 Carbon Dioxide 22 mmol/L (22-29) 08/14/23 11:33 Anion Gap 14.1 (5-19) 08/14/23 11:33 BUN 12 mg/dL (6-20) 08/14/23 11:33 Creatinine 0.8 mg/dL (0.5-0.9) 08/14/23 11:33 GFR Calculation 77.2 mL/min (90-130) L 08/14/23 11:33 Glucose 109 mg/dL (65-115) 08/14/23 11:33 Calculated Osmolality 294 mOsm/kg (285-295) 08/14/23 11:33 Calcium 8.9 mg/dL (8.5-10.5) 08/14/23 11:33 Total Bilirubin 0.3 mg/dL (0.15-1.2) 08/14/23 11:33 AST 14 U/L (0-32) 08/14/23 11:33 ALT 14 U/L (0-33) 08/14/23 11:33 Alkaline Phosphatase 65 U/L (35-105) 08/14/23 11:33 Total Protein 6.5 g/dL (6.6-8.7) L 08/14/23 11:33 Albumin 3.5 g/dL (3.5-5.2) 08/14/23 11:33 Globulin 3.0 g/dL (1.3-4.6) 08/14/23 11:33 Lipase 111 U/L (13-60) H 08/14/23 11:33 HCG, Qual Negative (Negative) 08/14/23 11:33 Urine Color Yellow (Yellow) 08/14/23 12:33 Urine Appearance Clear (CLEAR) 08/14/23 12:33 Urine pH 5 (5-7) 08/14/23 12:33 Ur Specific [place] 1.015 (1.005-1.030) 08/14/23 12:33 Urine Protein Neg (Negative) 08/14/23 12:33 Urine Glucose (UA) Norm (Normal) 08/14/23 12:33 Urine Ketones Negative (Negative) 08/14/23 12:33 Urine Blood Neg (Negative) 08/14/23 12:33 Urine Nitrate Negative (Negative) 08/14/23 12:33 Urine Bilirubin Neg (Negative) 08/14/23 12:33 Urine Urobilinogen Norm mg/dL (Negative) 08/14/23 12:33 Ur Leukocyte Esterase Negative (Negative) 08/14/23 12:33 Urine RBC Too numerous to cnt /hpf (0-2) H 08/14/23 11:01 Urine WBC 15-25 /hpf (0-5) H 08/14/23 11:01 Ur Squamous Epith Cells 5-10 /hpf (0-5) H 08/14/23 11:01 Amorphous Sediment Not Reportable 08/14/23 11:01 Urine Bacteria 1+ /hpf (NONE) H 08/14/23 11:01 Urine Mucus Trace /hpf 08/14/23 11:01 All radiology interpretation(s) finalized by discharge Discharge Plan Discharge Patient Disposition: Home Clinical Impression: Abnormal uterine bleeding, Uterine fibroid Condition: Stable Prescriptions: New hydrocodone-acetaminophen 5-325 mg tablet 1 tab PO Q6H PRN (Reason: pain) Qty: 15 0RF No Action norethindrone-ethin estradiol 1-35 mg-mcg tablet 1 tab PO DAILY Qty: 84 0RF albuterol sulfate [Ventolin HFA] 90 mcg/actuation HFA aerosol inhaler 1 puff INHALATION TID PRN (Reason: Shortness Of Breath Or Wheezing) acetaminophen 500 mg Tablet 500 mg PO Q6H PRN (Reason: Pain) ibuprofen 200 mg Tablet 200 mg PO Q6H PRN (Reason: Pain) hydrochlorothiazide 25 mg tablet 25 mg PO QAM Discharge Orders: Discharge ED (Routine); Ordered 08/14/23 Ordered By: Cedric Daily Referrals: Yazmin Rea, ENVIRONMENTAL QUALITY ANALYST [Primary Care Provider] - Discharge Diet: Usual diet Discharge Activity: Resume usual activity Patient Instructions: Opioid Safety, Pain Management Activity Restrictions/Additional Instructions: Thank you for choosing [facility] for your healthcare needs today. Please realize this is an emergency room and that we are providing you with a medical screening exam and this may not be complete and all inclusive of all the testing and or work up that you may need to determine your ailment or severity of your illness. It is very important that you follow up as instructed or that you return to the Emergency Department should you have concerns or if your condition changes or worsens in any way. CT of your abdomen did not show any significant abnormalities. Hemoglobin is stable. We contacted Dr. Bruno your character actor he recommends a taper of oral contraceptive pills. We also gave you prescription for pain medications. Stand Alone Forms: Work/School Release Coding Level of Care Code ED Agency Trainer for Jerrica Clifford
[2023-08-14] MEDS: ondansetron 2 mg/ML SDV 2 mL 4 MG IVP (11:25)
[2023-08-14 11:26] VITALS: RESP 16
[2023-08-14] MEDS: morphine 4 mg/mL SDV 1 mL IVP (11:26)
[2023-08-14 11:45] LABS: Basophils % 0.3 %; Eosinophils # 0.1 10^3/uL (0.0-0.8); Eosinophils % 0.8 %; Hematocrit 37.9 % (36-47); Lymphocytes # 1.9 10^3/uL (0.8-4.8); Lymphocytes % 21.5 %; Mean Corpuscular HGB Conc 33.8 g/dL (30-55); Mean Corpuscular Hemoglobin 31.8 pg (27-33); Mean Corpuscular Volume 94.3 fl (85-98); Mean Platelet Volume 10.8 fL (7.4-10.4); Monocytes # 0.6 10^3/uL (0.2-0.9); Monocytes % 6.3 %; Neutrophils # 6.26 10^3/uL (1.8-7.7); Neutrophils % 70.6 %; Nucleated Red Blood Cells % 0 %; Platelet Count 260 10^3/cmm (157-399); Red Blood Count 4.02 10^6/uL (3.85-5.65); White Blood Count 8.87 10^3/uL (3.29-11.43)
[2023-08-14 11:55] LABS: Specific Gravity, Urine 1.015 (1.005-1.030); Urine Appearance Cloudy (CLEAR); Urine Color Other (Yellow); pH Urine 5 (5-7)
[2023-08-14 11:57] LABS: Bilirubin Urine Not Tested (Negative); Blood Urine 3+ (Negative); Glucose Urine UA Norm (Normal); Ketones Urine 1+ (Negative); Nitrate Urine Not Tested (Negative); Protein Urine Not Tested (Negative); Urobilinogen Urine Not Tested mg/dL (Negative)
[2023-08-14 11:58] LABS: Add Urine Microscopic? YES; Leukocyte Esterase Urine 1+ (Negative); RBC Urine TOO NUMEROUS TO CNT /hpf (0-2)
[2023-08-14 12:00] LABS: Add Urine Culture? Yes; Bacteria Urine 1+ /hpf; Mucus Urine TRACE /hpf; WBC Urine 15-25 /hpf (0-5)
[2023-08-14 12:03] LABS: Alanine Aminotransferase 14 U/L (0-33); Albumin Level 3.5 g/dL (3.5-5.2); Alkaline Phosphatase 65 U/L (35-105); Anion Gap 14.1 (5-19); Aspartate Amino Transferase 14 U/L (0-32); Blood Urea Nitrogen 12 mg/dL (6-20); Calcium 8.9 mg/dL (8.5-10.5); Carbon Dioxide 22 mmol/L (22-29); Chloride 110 mmol/L (98-107); Creatinine Clr Calc Pharmacy 105.2205; Glomerular Filtration Rate 77.2 mL/min (90-130); Glucose 109 mg/dL (65-115); Lipase 111 U/L (13-60); Osmolality Calculated 294 mOsm/kg (285-295); Potassium 4.1 mmol/L (3.5-5.1); Sodium 142 mmol/L (136-145); Total Bilirubin 0.3 mg/dL (0.15-1.2); Total Protein 6.5 g/dL (6.6-8.7)
[2023-08-14 12:07] LABS: HCG, Serum Qual Negative (Negative)
--- NOTE | 2023-08-14 12:44 | PC.NURSE ---
PER VERBAL ORDER BY DR. XAVIER, ADMIN MORPHINE 2 MG TO PATIENT.
[2023-08-14] MEDS: iohexol 350 mg/mL 500 mL Btl (per mL) IV (12:52)
[2023-08-14 13:07] VITALS: RESP 16
[2023-08-14] MEDS: morphine 4 mg/mL SDV 1 mL 2 MG IVP (13:07)
[2023-08-14 13:08] VITALS: BP 174/115; PULSE 70; RESP 16; O2SAT 99
[2023-08-14 13:16] LABS: Add Urine Microscopic? NO; Charge for UA Resulting for Rev
[2023-08-14 13:34] LABS: Bilirubin Urine Neg (Negative); Blood Urine Neg (Negative); Glucose Urine UA Norm (Normal); Ketones Urine Negative (Negative); Leukocyte Esterase Urine Negative (Negative); Nitrate Urine Negative (Negative); Protein Urine Neg (Negative); Specific Gravity, Urine 1.015 (1.005-1.030); Urine Appearance Clear (CLEAR); Urine Color Yellow (Yellow); Urobilinogen Urine Norm (Negative); pH Urine 5 (5-7)
[2023-08-14 15:30] VITALS: BP 174/115; PULSE 70; RESP 16; TEMP 36.8; O2SAT 99
== END 2023-08-14 14:24 | disposition home or self-care (01) ==
PROVIDERS: Emergency Medicine; Emergency Provider Family Medicine; PCP Nurse Practitioner Family
DX: N93.9 Abnormal uterine and vaginal bleeding, unspecified (principal); D25.9 Leiomyoma of uterus, unspecified; I10 Essential (primary) hypertension
CPT/HCPCS: 74177; 80053; 81001; 81003; 83690; 84703; 85025; 87086; 96374; 96375; 96376; 99285; J2270; J2405; Q9967

== ENCOUNTER 2023-08-22 06:43 | Day surgery (SDC) | payer MEDICARE, MEDICAID, SELFPAY ==
[2023-08-22] VITALS (11 sets, daily range): BP systolic 143–179; BP diastolic 94–121; PULSE 62–74; RESP 12–20; TEMP 36.2–36.6; O2SAT 94–100; BMI 47.2
--- NOTE | 2023-08-22 01:47 | P.HP_ITS ---
Same Day Surgery H&P Indication for Procedure/HPI DATE OF PROCEDURE: August 22, 2023 CHIEF COMPLAINT/INDICATIONFOR SURGICAL PROCEDURE: abnormal uterine bleeding PREOP DIAGNOSIS: abnormal uterine bleeding PLANNED PROCEDURE: Operation Date: 08/22/23 08:15 Proposed Procedures p Hysteroscopy Hysteroscopy w/ Endometrial Sampling 76741, 51684, N93.9, D25.9(N ot Applicable) - Emre Bruno MD s Poylpectomy(Not Applicable) - Emre Bruno MD s Placement of Intrauterine Device(Not Applicable) - Emre Bruno MD 48 y.o. h/o BTL periods usually once a month, heavy but regular then began to bleed daily in June, heavy and painful now scheduled for hysteroscopy, endometrial sampling, possible endometrial polypectomy; placement of mirena intrauterine device Medications/Allergies* Home Medications Medication Instructions Recorded Confirmed Type albuterol sulfate 90 mcg/actuation 1 puff inhalation TID PRN 04/09/23 08/21/23 History aerosol inhaler (Ventolin HFA) Shortness Of Breath Or Wheezing acetaminophen 500 mg tablet 500 mg PO Q6H PRN Pain 08/14/23 08/21/23 History hydrochlorothiazide 25 mg tablet 25 mg PO QAM 08/14/23 08/21/23 History ibuprofen 200 mg tablet 200 mg PO Q6H PRN Pain 08/14/23 08/21/23 History Allergies/Adverse Reactions Allergy/AdvReac Type Severity Reaction Status Date / Time No Known Allergies Allergy Verified 07/29/23 13:14 Pertinent History/Comorbid Conditions* Medical History (Updated 08/22/23 @ 00:01 by GARCÍA Woodall) History of kidney stones Hypertension Depression Surgical History (Updated 01/13/20 @ 11:53 by Jesica Grier APRN) S/P extracorporeal shock wave therapy Family History (Updated 07/29/23 @ 13:15 by Luba Snell LPN) Ovarian cancer Grandmother Diabetes Father Heart disease Mother Multiple sclerosis Father Hypertension Father Mother Grandmother Thyroid disease Mother Sister Stroke Mother Denies family history of Colon cancer Prostate cancer Hypercholesteremia Breast cancer Uterine cancer Social History Marital status: Pertinent Exam Findings alert, oriented x 3, clear to auscultation bilaterally and regular rate & rhythm Recommendations Surgery/Procedure today Coding Level of Care Code Acute Code for Chg Fwd Time Spent (min) 20
[2023-08-22 06:58] LABS: OR HCG Qualitative Urine Negative (Negative)
[2023-08-22] MEDS: sodium chloride 0.9% 1,000 ML 30 ML IV (07:07)
--- NOTE | 2023-08-22 07:47 | W.PM.OPSUD ---
Surgery/Procedure H&P Update DATE OF PROCEDURE: August 22, 2023 DATE H&P PERFORMED: 08/22/23 H&P UPDATE INFORMATION: I have reviewed H&P completed within last 30 days, I have examined patient prior to procedure and No changes to prior documentation PREOP DIAGNOSIS: abnormal uterine bleeding PLANNED PROCEDURE: Operation Date: 08/22/23 08:15 Proposed Procedures p Hysteroscopy Hysteroscopy w/ Endometrial Sampling 14060, 77199, N93.9, D25.9(Not Applicable) - Emre Bruno MD s Poylpectomy(Not Applicable) - Emre Bruno MD s Placement of Intrauterine Device(Not Applicable) - Emre Bruno MD
--- NOTE | 2023-08-22 08:14 | ANES.PREANE2 ---
Pre-Anesthetic Assessment Height/Weight: Height 1.55 m Weight 113.398 kg Temp Pulse Resp BP Pulse Ox O2 Del Method 97.2 F L 72 17 156/121 97 Room Air 08/22/23 06:56 08/22/23 06:56 08/22/23 06:56 08/22/23 06:56 08/22/23 06:56 08/22/23 07:03 Preop Diagnosis: abnormal uterine bleeding Operation Date: 08/22/23 08:15 Proposed Procedures p Hysteroscopy Hysteroscopy w/ Endometrial Sampling 09462, 00137, N93.9, D25.9(Not Applicable) - Emre Bruno MD s Poylpectomy(Not Applicable) - Emre Bruno MD s Placement of Intrauterine Device(Not Applicable) - Emre Bruno MD Familial anesthetic complications: None Was Beta Darrell taken within 24 hours: N/A Was Clonidine taken within 24 hours: N/A Last intake: Intake Last Liquid Date 08/21/23 Last Liquid Time 21:00 Last Solid Date 08/21/23 Last Solid Time 21:00 Social No alcohol and No tobacco Exam alert, oriented x 3, clear to auscultation bilaterally and regular rate & rhythm Airway Mallampati: Class III Dentition: other ( the front part isn't real, but it doesn't come out ) CV/HEM Hypertension Metabolic Morbid Obesity Anesthetic Plan ASA status: 2 Anesthesia: General Risk of > 500 ml blood loss (7ml/kg in children): No Medications/Allergies Home Medications Medication Instructions Recorded Confirmed Last Taken Type albuterol sulfate 90 mcg/actuation 1 puff inhalation TID PRN 04/09/23 08/21/23 08/20/23 History aerosol inhaler (Ventolin HFA) Shortness Of Breath Or Wheezing norethindrone 1 mg-ethinyl 1 tab PO DAILY #84 tabs 07/29/23 08/21/23 08/21/23 Rx estradiol 35 mcg tablet acetaminophen 500 mg tablet 500 mg PO Q6H PRN Pain 08/14/23 08/21/23 08/21/23 History hydrochlorothiazide 25 mg tablet 25 mg PO QAM 08/14/23 08/21/23 08/21/23 History hydrocodone 5 mg-acetaminophen 325 1 tab PO Q6H PRN pain #15 tabs 05/08/21/23 08/21/23 Rx mg tablet ibuprofen 200 mg tablet 200 mg PO Q6H PRN Pain 08/14/23 08/21/23 08/14/23 History Allergies Allergy/AdvReac Type Severity Reaction Status Date / Time No Known Allergies Allergy Verified 08/22/23 06:54 Current Medications Generic Name Dose Route Start Last Admin Trade Name Freq PRN Reason Stop Dose Admin Sodium Chloride 1,000 mls @ 30 mls/hr 08/22/23 07:00 08/22/23 07:07 Sodium Chloride 0.9% IV 08/23/23 06:59 30 mls/hr .Q24H ANN Administration PFSH Anesthesia Medical History History of kidney stones Hypertension Depression Surgical History S/P extracorporeal shock wave therapy Family History Father Diabetes Multiple sclerosis Hypertension Mother Hypertension Heart disease Stroke Thyroid disease Grandmother Hypertension Ovarian cancer Sister Thyroid disease Denies family history of Colon cancer Prostate cancer Hypercholesteremia Breast cancer Uterine cancer Social History Marital status: Data Anesthesia Cardiac Studies: No Data to Display
--- NOTE | 2023-08-22 08:45 | PM.OP ---
Operative Report Date of procedure: August 22, 2023 Pre-op diagnosis: abnormal uterine bleeding Post-op diagnosis: same Post-op findings: Normal vagina and cervix normal endometrial cavity No polyps / fibroids + moderate amount of fluffy endometrial tissue Procedure done: hysteroscopy Endometrial sampling with Myosure Curettage of uterus Placement of mirena intrauterine device Implants: mirena intrauterine device Specimens removed/disposition: endometrial tissue Surgeon: Emre Bruno MD Anesthesia: General Estimated blood loss (mL): 5 Complications: none Findings: Normal vagina and cervix normal endometrial cavity No polyps / fibroids + moderate amount of fluffy endometrial tissue Brief History: 48 y.o. h/o BTL periods usually once a month, lasting 4-5 days, heavy but regular then began to bleed daily one month ago heavy and painful Procedure: Informed consent signed. Patient taken to the operating room. Anesthesia induced. Patient was placed in dorsolithotomy position, prepped and draped for hysteroscopy. A bivalve speculum was placed in the vagina. The anterior lip of the cervix was grasped with a sharp-toothed tenaculum. The uterus was sounded to 10 cm. The cervix was serially dilated with Hegar dilators. . A hysteroscope was placed into the endometrial cavity. The endometrial cavity was seen to be normal. There were no polyps or fibroids. There was moderate amount of fluffy appearing endometrial tissue. The Myosure device was used to remove the excess endometrial tissue. The hysteroscope was then removed. Endometrial curettage was done with a sharp curette. Endometrial tissue was sent to pathology. The mirena intrauterine device was then prepared, placed into the endometrial cavity and deployed. A 3-4 cm string was left at the cervical os. The sharp-toothed tenaculum was removed. There was no bleeding from the endometrial cavity or cervix. The patient was then placed supine and awakened and taken to the PACU. Postop condition: stable EBL: 5 cc Sponge and instruments counts were normal x 2 Complications: none
[2023-08-22] MEDS: fentaNYL 50 mcg/mL INJ 2mL IVP (09:34)
--- NOTE | 2023-08-22 10:35 | ANE.PACU2 ---
Inpatient post-anesthesia follow up: Airway intact: Yes Vital signs: Temperature 97.1 F Pulse Rate 70 Respiratory Rate 18 Blood Pressure 163/99 Pulse Oximetry 98 Oxygen Delivery Me thod Room Air Oxygen Flow Rate 8 Fraction of Inspir ed Oxygen Hydration adequate: Yes Nausea and vomiting: No Pain level: 1 Mental status: Baseline
== END 2023-08-22 10:39 | disposition home or self-care (01) ==
PROVIDERS: Anesthesiology; PCP Nurse Practitioner Family; Visit Provider Obstetrics & Gynecology
PROC: 0UJD8ZZ Inspection of Uterus and Cervix, Via Natural or Artificial Opening Endoscopic (ICD-10-PCS; CPT 58555; principal; 2023-08-22 08:05)
PROC: (CPT 58300; 2023-08-22 08:05)
DX: N93.9 Abnormal uterine and vaginal bleeding, unspecified (principal); I10 Essential (primary) hypertension; F32.A Depression, unspecified; E66.01 Morbid (severe) obesity due to excess calories; Z68.42 Body mass index [BMI] 45.0-49.9, adult
CPT/HCPCS: 58300; 58558; 81025; 88305; J2405; J2704; J3010; J7030